=== PATIENT | female | born 1970 | race Caucasian/White ===

== ENCOUNTER 2017-10-29 11:53 | Emergency (ER) | payer BC ==
[2017-10-29] MEDS ORDERED: Lidocaine 2% EPI 1:200000 MPF* 20 ML VIAL ONE (13:33)
[2017-10-29] MEDS ORDERED: Levofloxacin 750 MG IVPREMIX(* 750 MG/150 ML BAG IVPB ONE (13:33)
[2017-10-29] MEDS ORDERED: Morphine INJ* 4 MG/ML 1 ML SYRINGE (NEW SYRINGE VERSION) IV ONE (13:34)
[2017-10-29] MEDS ORDERED: Ondansetron INJ* 2 MG/ML VIAL IV ONE (13:34)
[2017-10-29] MEDS ORDERED: Lidocaine 1.5% EPI 1:200,000* 30 ML SDV INJ ONE (13:38)
[2017-10-29] MEDS ORDERED: Lidocaine 2% EPI 1:200000 MPF* 20 ML VIAL INJ ONE (13:40)
[2017-10-29 13:50] LABS: ABS Basophils 0.1 10^3/ul (0-0.2); ABS Eosinophils 0 10^3/ul (0-0.6); ABS Lymphocytes 1.5 10^3/ul (1.0-4.8); ABS Monocytes 0.4 10^3/ul (0-0.8); ABS Neutrophils 7.4 10^3/ul (1.5-7.7); ABS Nucleated RBC 0 10^3/ul; Eosinophil % 0.1 % (0-6); Hematocrit 34 % (35-47); Hemoglobin 10.9 g/dl (12.0-16.0); Lymphocyte % 16.2 % (25-47); Mean Corpuscular HGB Conc 33 g/dl (31-36); Mean Corpuscular Hemoglobin 25 pg (27-31); Mean Corpuscular Volume 76 fL (80-97); Nucleated Red Blood Cells % 0; Platelet Count 239 10^3/ul (150-450); Red Blood Count 4.42 10^6/ul (4.0-5.4); Red Cell Distribution Width 17 % (10.5-15); White Blood Count 9.4 10^3/ul (3.5-10.8)
[2017-10-29 13:57] LABS: INR 0.94 (0.77-1.02)
--- NOTE | 2017-10-29 14:00 | RAD ---
HISTORY: Right lower medial thigh swelling and redness, rule out abscess COMPARISONS: None TECHNIQUE: Multiple transverse and longitudinal ultrasound images were obtained of the area of clinical abnormality using grayscale and color Doppler imaging. FINDINGS: In the area of clinical abnormality, there is a loculated fluid collection measuring 3.6 x 4.4 x 2.7 cm in size. There is no hypervascularity. IMPRESSION: 4.4 CM LOCULATED FLUID COLLECTION OF THE PROXIMAL RIGHT MEDIAL THIGH IN THE AREA OF CLINICAL ABNORMALITY. THE DIFFERENTIAL INCLUDES ABSCESS VERSUS HEMATOMA
[2017-10-29 14:05] LABS: EGFR Non-African American 102.2 (>60)
[2017-10-29] MEDS ORDERED: oxyCODONE/Acetamin 5/325 MG* TAB PO ONE (15:18)
[2017-10-29] MEDS ORDERED: Sulfamethox/Trimethoprim DS 800/160* TAB PO ONE (15:19)
[2017-10-29 15:42] VITALS: BP 111/62
--- NOTE | 2017-10-29 19:09 | ED ---
Daisha Fritz Elizabeth, scribed for Arthur Coats on 10/29/17 at 1418 . Skin Complaint - HPI Summary HPI Summary: The patient is a 47 year old female complaining of boil near her groin that has been present for 4 days. The patient additionally complains of fever 1 day ago. Per triage note, the patient denies any discharge. Patient has a history of diabetes and hypertension and takes medications for both. - History of Current Complaint Chief Complaint: EDRashSkinAbscess Time Seen by Provider: 10/29/17 13:21 Stated Complaint: RT THIGH PAIN Hx Obtained From: Patient Hx Last Menstrual Period: NOW Onset/Duration: Started Days Ago - has been present for 4 days Timing: Constant Current Severity: Mild Pain Intensity: 7 Pain Scale Used: 0-10 Numeric Skin Location: Leg - right inner thigh Character: Swelling Related History: Diabetes - Allergy/Home Medications Allergies/Adverse Reactions: Allergies Allergy/AdvReac Type Severity Reaction Status Date / Time amoxicillin Allergy Anaphylatic Verified 10/29/17 12:06 Shock ampicillin Allergy Anaphylatic Verified 10/29/17 12:06 Shock bee venom protein (honey bee) Allergy Anaphylatic Verified 10/29/17 12:06 Shock cephalexin [From Keflex] Allergy Hives Verified 10/29/17 12:06 clindamycin Allergy GI Upset Verified 10/29/17 12:06 Penicillins Allergy Anaphylatic Verified 10/29/17 12:06 Shock piperacillin Allergy Anaphylatic Verified 10/29/17 12:06 Shock procaine [From Novocain] Allergy Unknown Verified 10/29/17 12:06 Reaction Details PMH/Surg Hx/FS Hx/Imm Hx Endocrine/Hematology History: Reports: Hx Diabetes Cardiovascular History: Reports: Other Cardiovascular Problems/Disorders - states irregular heart beat found with seizures yrs ago Denies: Hx Congestive Heart Failure, Hx Hypertension, Hx Pacemaker/ICD Respiratory History: Denies: Other Respiratory Problems/Disorders GI History: Reports: Hx Crohn's Disease - treated last yr no problems since that time, Hx Gastroesophageal Reflux Disease - ok with daily meds History: Reports: Hx Kidney Infection - in past frequently Denies: Hx Renal Disease Sensory History: Reports: Hx Contacts or Glasses - glasses inst given Denies: Hx Hearing Aid Opthamlomology History: Reports: Hx Contacts or Glasses - glasses inst given Neurological History: Reports: Hx Headaches, Hx Migraine - r/t htn no better on htn meds, Hx Seizures - not on meds stopped seizures after first child in 1990 Psychiatric History: Denies: Hx Panic Disorder - Surgical History Surgery Procedure, Year, and Place: C SECTION . RIGHT KNEE MENISCUS X2 . TOOTH REMOVED WITH INFECTION 2014 HAD TO HAVE BONE REMOVED. GALLBLADDER 1997. TUBAL LIGATION 2003 Hx Anesthesia Reactions: No Infectious Disease History: No Infectious Disease History: Denies: Traveled Outside the [place] in Last 30 Days - Family History Known Family History: Positive: None - Social History Alcohol Use: None Substance Use Type: Reports: None Substance Use Comment - Amount & Last Used: 18 Smoking Status (MU): Heavy Every Day Tobacco Smoker Type: Cigarettes Amount Used/How Often: 1 PPD Review of Systems Negative: discharge Positive: Other - swelling to inner right thigh All Other Systems Reviewed And Are Negative: Yes Physical Exam - Summary Physical Exam Summary: Appearance: Well appearing, no pain distress Skin: warm, dry, reflects adequate perfusion Head/face: normal Eyes: EOMI, MARY ENT: normal Neck: supple, non-tender Respiratory: CTA, breath sounds present Cardiovascular: RRR, pulses symmetrical Abdomen: non-tender, soft Lower Extremities: swelling to right inner medial thigh (6 cm x 6 cm), tender with mild redness and firm consistency. Bowel: present Musculoskeletal: normal, strength/ROM intact Neuro: normal, sensory motor intact, A&Ox3 Triage Information Reviewed: Yes Vital Signs On Initial Exam: Initial Vitals Temp Pulse Resp BP Pulse Ox 98 F 109 19 128/71 98 10/29/17 12:06 10/29/17 12:06 10/29/17 12:06 10/29/17 12:06 10/29/17 12:06 Vital Signs Reviewed: Yes Procedures - Incision and Drainage Site: proximal right medial thigh Anesthesia: Local, Lidocaine Instrument(s): Needle Packing: Drain Diagnostics - Vital Signs Vital Signs Temp Pulse Resp BP Pulse Ox 10/29/17 12:06 98 F 109 19 128/71 98 - Laboratory Lab Results: Lab Results 10/29/17 10/29/17 10/29/17 Range/Units 13:40 13:40 13:40 WBC 9.4 (3.5-10.8) 10^3/ul RBC 4.42 (4.0-5.4) 10^6/ul Hgb 10.9 L (12.0-16.0) g/dl Hct 34 L (35-47) % MCV 76 L (80-97) fL MCH 25 L (27-31) pg MCHC 33 (31-36) g/dl RDW 17 H (10.5-15) % Plt Count 239 (150-450) 10^3/ul MPV 9.0 (7.4-10.4) um3 Neut % (Auto) 78.2 (38-83) % Lymph % (Auto) 16.2 L (25-47) % Dundy % (Auto) 4.5 (0-7) % Eos % (Auto) 0.1 (0-6) % Baso % (Auto) 1.0 (0-2) % Absolute Neuts (auto) 7.4 (1.5-7.7) 10^3/ul Absolute Lymphs (auto) 1.5 (1.0-4.8) 10^3/ul Absolute Monos (auto) 0.4 (0-0.8) 10^3/ul Absolute Eos (auto) 0 (0-0.6) 10^3/ul Absolute Basos (auto) 0.1 (0-0.2) 10^3/ul Absolute Nucleated RBC 0 10^3/ul Nucleated RBC % 0 INR (Anticoag Therapy) (0.77-1.02) APTT (26.0-36.3) seconds Sodium 132 L (133-145) mmol/L Potassium 3.5 (3.5-5.0) mmol/L Chloride 99 L (101-111) mmol/L Carbon Dioxide 25 (22-32) mmol/L Anion Gap 8 (2-11) mmol/L BUN 8 (6-24) mg/dL Creatinine 0.63 (0.51-0.95) mg/dL Est GFR ( Amer) 131.4 (>60) Est GFR (Non-Af Amer) 102.2 (>60) BUN/Creatinine Ratio 12.7 (8-20) Glucose 184 H (70-100) mg/dL Lactic Acid 2.0 (0.5-2.0) mmol/L Calcium 9.1 (8.6-10.3) mg/dL Total Bilirubin 0.40 (0.2-1.0) mg/dL AST 11 L (13-39) U/L ALT 11 (7-52) U/L Alkaline Phosphatase 99 (34-104) U/L Total Protein 7.0 (6.4-8.9) g/dL Albumin 3.9 (3.2-5.2) g/dL Globulin 3.1 (2-4) g/dL Albumin/Globulin Ratio 1.3 (1-3) //18 Range/Units 13:40 WBC (3.5-10.8) 10^3/ul RBC (4.0-5.4) 10^6/ul Hgb (12.0-16.0) g/dl Hct (35-47) % MCV (80-97) fL MCH (27-31) pg MCHC (31-36) g/dl RDW (10.5-15) % Plt Count (150-450) 10^3/ul MPV (7.4-10.4) um3 Neut % (Auto) (38-83) % Lymph % (Auto) (25-47) % Dundy % (Auto) (0-7) % Eos % (Auto) (0-6) % Baso % (Auto) (0-2) % Absolute Neuts (auto) (1.5-7.7) 10^3/ul Absolute Lymphs (auto) (1.0-4.8) 10^3/ul Absolute Monos (auto) (0-0.8) 10^3/ul Absolute Eos (auto) (0-0.6) 10^3/ul Absolute Basos (auto) (0-0.2) 10^3/ul Absolute Nucleated RBC 10^3/ul Nucleated RBC % INR (Anticoag Therapy) 0.94 (0.77-1.02) APTT 28.0 (26.0-36.3) seconds Sodium (133-145) mmol/L Potassium (3.5-5.0) mmol/L Chloride (101-111) mmol/L Carbon Dioxide (22-32) mmol/L Anion Gap (2-11) mmol/L BUN (6-24) mg/dL Creatinine (0.51-0.95) mg/dL Est GFR ( Amer) (>60) Est GFR (Non-Af Amer) (>60) BUN/Creatinine Ratio (8-20) Glucose (70-100) mg/dL Lactic Acid (0.5-2.0) mmol/L Calcium (8.6-10.3) mg/dL Total Bilirubin (0.2-1.0) mg/dL AST (13-39) U/L ALT (7-52) U/L Alkaline Phosphatase (34-104) U/L Total Protein (6.4-8.9) g/dL Albumin (3.2-5.2) g/dL Globulin (2-4) g/dL Albumin/Globulin Ratio (1-3) Result Diagrams: 10/29/17 13:40 10/29/17 13:40 Lab Statement: Any lab studies that have been ordered have been reviewed, and results considered in the medical decision making process. - Additional Comments Diagnostic Additional Comments: Soft Tissue Ultrasound Interpreted by radiologist. IMPRESSION: 4.4 CM LOCULATED FLUID COLLECTION OF THE PROXIMAL RIGHT MEDIAL THIGH IN THE AREA OF CLINICAL ABNORMALITY. THE DIFFERENTIAL INCLUDES ABSCESS VERSUS HEMATOMA Dr. Coats has reviewed this report. Course/Dx - Course Course Of Treatment: The patient is a 47 year old female complaining of abscess near her groin that has been present for 4 days. Bloodwork obtained. Soft tissue US reveals, per radiologist, 4.4 am loculated fluid collection of the proximal right medial thigh in the area of clinical abnormality. Dr. Coats has reviewed this report. In the ED course the patient was given Levofloxacin, Lidocaine, IV Morphine, IV Zofran, oxycodone, Bactrim. I/D of the abscess on the proximal right medial thigh. We discussed patient care with Dr. Deluna and they recommended the patient be referred to their office. Patient will be discharge and instructed to follow up with Dr. Deluna in 3 days. The patient is agreeable with this plan. - Differential Diagnoses - Skin Complaint Differential Diagnoses: Abscess, Cellulitis, Diabetes, Drug Rash - Diagnoses Provider Diagnoses: Abscess of thigh, Diabetes - Physician Notifications Discussed Care Of Patient With: Pancho Deluna Instructed by Provider To: Other - Dr. Deluna recommends that the patient be referred to their office for a follow-up Discharge - Sign-Out/Discharge Documenting (check all that apply): Discharge - discharge home - Discharge Plan Condition: Stable Disposition: HOME Prescriptions: Ibuprofen TAB* [Motrin TAB* 600 MG] 600 mg PO Q8H PRN #20 tab MDD 3 PRN Reason: Pain Oxycodone HCl/Acetaminophen [Percocet] 1 tab PO TID #10 tab MDD 3 Sulfamethox/Trimethoprim DS* [Bactrim DS 800/160 TAB*] 1 tab PO BID #20 tab Patient Education Materials: Abscess (ED) Referrals: Lula Rodriguez NP [Primary Care Provider] - Pancho Deluna MD [Medical Doctor] - Additional Instructions: Follow-up with Dr. Deluna in 3 days - Billing Disposition and Condition Condition: STABLE Disposition: HOME The documentation as recorded by the Daisha caro Elizabeth accurately reflects the service I personally performed and the decisions made by Pauly brownlee Emmanuel.
--- NOTE | 2017-11-01 09:03 | ED ---
Progress - Progress Note Progress Note: Patient's wound culture results are negative for MRSA and staph aureus however there positive for Finegoldia magna. Patient was seen for an abscess in her right groin region. This was I&D patient was started on Bactrim prior to discharge. Note indicates patient is to follow-up with general surgery in 3 days which would be today. No further action at this time. Course/Dx - Course Course Of Treatment: The patient is a 47 year old female complaining of abscess near her groin that has been present for 4 days. Bloodwork obtained. Soft tissue US reveals, per radiologist, 4.4 am loculated fluid collection of the proximal right medial thigh in the area of clinical abnormality. Dr. Coats has reviewed this report. In the ED course the patient was given Levofloxacin, Lidocaine, IV Morphine, IV Zofran, oxycodone, Bactrim. I/D of the abscess on the proximal right medial thigh. We discussed patient care with Dr. Deluna and they recommended the patient be referred to their office. Patient will be discharge and instructed to follow up with Dr. Deluna in 3 days. The patient is agreeable with this plan. - Diagnoses Provider Diagnoses: Abscess of thigh, Diabetes - Provider Notifications Instructed by Provider To: Other - Dr. Deluna recommends that the patient be referred to their office for a follow-up Discharge - Sign-Out/Discharge Documenting (check all that apply): Post-Discharge Follow Up - Discharge Plan Condition: Stable Disposition: HOME Prescriptions: Ibuprofen TAB* [Motrin TAB* 600 MG] 600 mg PO Q8H PRN #20 tab MDD 3 PRN Reason: Pain Oxycodone HCl/Acetaminophen [Percocet] 1 tab PO TID #10 tab MDD 3 Sulfamethox/Trimethoprim DS* [Bactrim DS 800/160 TAB*] 1 tab PO BID #20 tab Patient Education Materials: Abscess (ED) Referrals: Lula Rodriguez NP [Primary Care Provider] - Pancho Deluna MD [Medical Doctor] - Additional Instructions: Follow-up with Dr. Deluna in 3 days - Billing Disposition and Condition Condition: STABLE Disposition: HOME
== END 2017-10-29 15:40 | disposition home or self-care (01) ==
LOC: ED 11:53
DX: L02.415 Cutaneous abscess of right lower limb (principal); B96.89 Other specified bacterial agents as the cause of diseases classified elsewhere; E11.9 Type 2 diabetes mellitus without complications; Z79.84 Long term (current) use of oral hypoglycemic drugs; I49.9 Cardiac arrhythmia, unspecified; Z88.0 Allergy status to penicillin; Z88.4 Allergy status to anesthetic agent; Z88.1 Allergy status to other antibiotic agents; Z91.030 Bee allergy status; F17.210 Nicotine dependence, cigarettes, uncomplicated
CPT/HCPCS: 10060; 36415; 80053; 83605; 85025; 85610; 85730; 87040; 87070; 87076; 87205; 87640; 87641; 96365; 96375; 99283; A9270-GY; J2270; J2405

== ENCOUNTER 2018-08-25 17:45 | Emergency (ER) | payer BC, OTHER ==
[2018-08-25 18:18] VITALS: BP 124/80
--- NOTE | 2018-08-25 18:27 | UC ---
Knee Pain HPI - HPI Summary HPI Summary: 48 y/o female presents to the urgent care c/o RT knee pain s/p falling on the concrete floor this morning around 1000AM at work. Pt reports Hx of Meniscus tear surgery 2X w/ Dr kincaid and 2011. Pt has been limping due to pain. Pain is sharp 8/10 walking. Pt took Ibuprofen 600mg PO around 1030AM to alleviate symptoms. Pt denies numbness or tingling sensation over the knee, calf pain, SOB, chest pain, abdominal pain,N/V/D. - History of Current Complaint Chief Complaint: UCLowerExtremity Stated Complaint: KNEE INJURY Time Seen by Provider: 08/25/18 18:26 Hx Obtained From: Patient Hx Last Menstrual Period: 07/17/18 ?: No - B/L tubal ligation Onset/Duration: Sudden Onset Severity Initially: Mild Severity Currently: Mild Pain Intensity: 8 Pain Scale Used: 0-10 Numeric Character: Sharp - w/ movment and walking Aggravating Factor(s): Movement Alleviating Factor(s): Rest, OTC Meds - ibuprofen 800mg PO at 1030am Associated Signs And Symptoms: Positive: Swelling - mild, Bruising - over patella. Negative: Redness, Fever, Weakness, Numbness, Tingling Able to Bear Weight: Yes - Risk Factors Septic Arthritis Risk Factor: Negative Gout Risk Factor: Negative - Allergies/Home Medications Allergies/Adverse Reactions: Allergies Allergy/AdvReac Type Severity Reaction Status Date / Time amoxicillin Allergy Anaphylatic Verified 08/25/18 18:18 Shock ampicillin Allergy Anaphylatic Verified 08/25/18 18:18 Shock bee venom protein (honey bee) Allergy Anaphylatic Verified 08/25/18 18:18 Shock cephalexin [From Keflex] Allergy Hives Verified 08/25/18 18:18 clindamycin Allergy GI Upset Verified 08/25/18 18:18 Penicillins Allergy Anaphylatic Verified 08/25/18 18:18 Shock piperacillin Allergy Anaphylatic Verified 08/25/18 18:18 Shock procaine [From Novocain] Allergy Unknown Verified 08/25/18 18:18 Reaction Details Home Medications: Home Medications Gabapentin CAP(*) [Neurontin 100 mg CAP(*)] 100 mg PO TID 08/25/18 [History Confirmed 08/25/18] Ibuprofen TAB* [Advil TAB*] 800 mg PO ONCE PRN 08/25/18 [History Confirmed 08/25] Pregabalin CAP(*) [Lyrica CAP(*)] 100 mg PO TID 08/25/18 [History Confirmed ] PMH/Surg Hx/FS Hx/Imm Hx Previously Healthy: Yes Endocrine History: Diabetes - Surgical History Surgical History: Yes Surgery Procedure, Year, and Place: C SECTION . RIGHT KNEE MENISCUS X2 . TOOTH REMOVED WITH INFECTION 2014 HAD TO HAVE BONE REMOVED. GALLBLADDER 1997. SURGERY. TUBAL LIGATION 2003 - Family History Known Family History: Positive: Diabetes - Social History Occupation: Employed Full-time Lives: With Family Alcohol Use: None Substance Use Type: None Substance Use Comment - Amount & Last Used: 18 Smoking Status (MU): Former Smoker Type: Cigarettes Amount Used/How Often: 1 PPD Review of Systems All Other Systems Reviewed And Are Negative: Yes Constitutional: Positive: Negative Skin: Positive: Other - mild swelling over the patella Eyes: Positive: Negative ENT: Positive: Negative Respiratory: Positive: Negative Cardiovascular: Positive: Negative Gastrointestinal: Positive: Negative Genitourinary: Positive: Negative Motor: Positive: Negative Neurovascular: Positive: Negative Musculoskeletal: Positive: Decreased ROM - RT knee, Other: - Rt knee pain s/p fall Neurological: Positive: Negative Psychological: Positive: Negative Is Patient Immunocompromised?: No Physical Exam - Summary Physical Exam Summary: Vital Signs Reviewed: Yes General: well developed, well nourished obese female sitting in the examining table w/o any apparent distress Eyes: Positive: Conjunctiva Clear - PERRLA, EOMI, fundi grossly normal ENT: Positive: Normal ENT inspection, Hearing grossly normal, Pharynx normal, TMs normal Neck: Positive: Supple, Nontender, No Lymphadenopathy Respiratory: Positive: Chest nontender, Lungs clear, Normal breath sounds, No respiratory distress Cardiovascular: Positive: RRR, No Murmur, Pulses Normal, Brisk Capillary Refill Abdomen Description: Positive: Nontender, No Organomegaly, Soft. Negative: CVA Tenderness (R), CVA Tenderness (L) Bowel Sounds: Positive: Present Musculoskeletal: Positive: Strength Intact, No Edema, Rt Knee: Pt is able to bear weight and ambulate with limping. No surface trauma, mild soft tissue swelling below patella, no obvious effusion. No overlying erythema or warmth. The R knee is without obvious asymmetry or deformity when compared with the L knee. Decreased ROM of RT knee due to pain. Positive tenderness to palpation of the patella, no effusion or ballottement. PT tenderness over the infrapatellar tendon. Point tenderness over the medial joint line, No tenderness over the medial or lateral tibial plateaus. No tenderness over the proximal fibular head , No tenderness, fullness or mass of the popliteal fossa. No quadriceps tenderness. No laxity of the ACL. PCL, MCL, or LCL. no collateral ligament laxity to valgus or varus stress. Negative Angelique/Drawer sign. Negative Maryse. Distal motor and neurovascular status intact. Neurological Exam: Normal Psychological Exam: Normal Skin Exam: Normal Triage Information Reviewed: Yes Vital Signs: Initial Vital Signs Temp 98.2 F 08/25/18 18:12 Pulse 110 08/25/18 18:12 Resp 18 08/25/18 18:12 BP 124/80 08/25/18 18:12 Pulse Ox 100 08/25/18 18:12 Knee Pain Course/Dx - Course Course Of Treatment: 48 y/o female presents to the urgent care c/o RT knee pain s/p falling on the concrete floor this morning around 1000AM at work. Pt reports Hx of Meniscus tear surgery 2X w/ Dr kincaid and 2011. Pt has been limping due to pain. Pain is sharp 8/10 walking. Pt took Ibuprofen 600mg PO around 1030AM to alleviate symptoms. Pt denies numbness or tingling sensation over the knee, calf pain, SOB, chest pain, abdominal pain,N/V/D. Hx obtained. Pt w/ Hx of meniscus tear repair 2X in 2007 and 2011 w/ Dr Hardy. Rt knee X- ray ordered, Impression: Soft tissue swelling, no acute fracture observed. Dr Sargent consulted on X-ray and he doesn't see any abnormality. Final reading still pending. Pt will be notified tomorrow of final reading. Pt most likely with a RT knee Sprain. Pt knee immobilized with ROMAIN bandage and knee immobilizer. Pt Rx [place] PO to alleviate symptoms. Pt advised RICE, take medication for pain and to f/u with her Orthopedic DR Hardy in 2- days for further treatment. Pt understood and agreed and left the clinic ambulating. - Differential Dx/Diagnosis Differential Diagnosis/HQI/PQRI: Contusion, Dislocation, Fracture (Closed), Sprain, Strain, Tendonitis Provider Diagnosis: Pain of right knee after injury, Right knee sprain Discharge - Sign-Out/Discharge Documenting (check all that apply): Patient Departure - D/c home All imaging exams completed and their final reports reviewed: No - Discharge Plan Condition: Stable Disposition: HOME Prescriptions: HYDROcodone/ACETAMIN 5-325 MG* [Rockwood 5-325 TAB*] 1 tab PO Q6H PRN #12 tab MDD 1g/4h-4g/day PRN Reason: Pain Patient Education Materials: Knee Sprain (ED) Referrals: Mychal Hardy MD [Medical Doctor] - 3 Days Lula Rodriguez NP [Primary Care Provider] - 3 Days Additional Instructions: 1-Please take medications as directed to alleviate pain and swelling. 2-Please apply ice, keep your knee immobilized with the Knee inmobilizer. Avoid any strenuous exercise or standing for long periods of time. Elevate your leg at night time 3- Please f/u with your Orthopedic Dr Hardy in 3 days for further evaluation and treatment. - Billing Disposition and Condition Condition: STABLE Disposition: Home
== END 2018-08-25 19:40 | disposition home or self-care (01) ==
LOC: UCEAST 17:45
DX: M76.9 Unspecified enthesopathy, lower limb, excluding foot (principal); Z88.0 Allergy status to penicillin; Z88.1 Allergy status to other antibiotic agents; Z88.4 Allergy status to anesthetic agent; E11.9 Type 2 diabetes mellitus without complications; Z87.891 Personal history of nicotine dependence; W19.XXXA Unspecified fall, initial encounter; Y92.89 Other specified places as the place of occurrence of the external cause; Y99.0 Civilian activity done for income or pay
CPT/HCPCS: 99213; G0463

== ENCOUNTER 2019-05-30 17:41 | Emergency (ER) | payer BC, OTHER ==
--- OUTSIDE RECORDS SUMMARY | 2019-05-30 17:48 | XMS REPORT | Summary of Care ---
:1970 Author Organization [facility] Address [address] [address] Care Team Providers Name Role Phone Colt Starks MD Primary Care Provider Reason for Referral Refer to Department Only (Routine) Status Reason Specialty Diagnoses / Referred By Referred To Procedures Contact Contact Pending Review Gastroenterology Diagnoses History of colon polyps Other iron deficiency anemia Bhargav Rodriguez FNP Gastroenterolog [address] y/Hepatology [address] [address] Road Phone: [place], [place] [phone] Fax: Scheduling Instructions Is the patient on cpap machine?No Is the patient on oxygen?No BP 117/75 (BP Location: Left arm, Patient Position: Sitting) | Pulse (!) 120 | Ht 5' 11" (1.803 m) | Wt 254 lb (115.2 kg) | SpO2 98% | BMI 35.43 kg/m BMI Readings from Last 4 Encounters: 04/26/19 : 35.43 kg/m 04/03/19 : 37.38 kg/m 03/27/19 : 37.38 kg/m 03/13/19 : 36.96 kg/m Controlled Substance Medications: Anticoagulant Medications: Psychiatric/Antianxiety Medications: Antiretroviral Medications: Reason for Visit Reason Comments Follow Up diabetes and anemia Encounter Details Date Type Department Care Team Description 04/26/2019 Office Visit Lula Miguel Diabetes mellitus without complication (HCC) (Primary Dx); Practice [employer] Mixed hyperlipidemia; [address] Essential hypertension; [place] [address] [place] [address] History of colon polyps; [phone] Other iron deficiency anemia Allergies Active Allergy Reactions Severity Noted Date Comments Ampicillin Anaphylaxis 08/27/2015 Bee Anaphylaxis High 07/19/2011 Clindamycin Anaphylaxis 07/19/2017 Keflex Anaphylaxis High 07/19/2011 Penicillin G Anaphylaxis, Hives High 07/19/2011 documented as of this encounter (statuses as of 04/26/2019) Medications Medication Sig Dispensed Refills Start Date End Date Status Naproxen Sodium Take by 0 Active (ALEVE) 220 MG Oral mouth. Tab loratadine Take 10 mg by 0 Active (CLARITIN,ALAVERT) mouth DAILY. 10 MG Oral Tab pregabalin (LYRICA) Take 1 Cap by 90 Cap 5 03/27/2019 Active 100 MG Oral Cap mouth THREE TIMES DAILY. Max Daily Amount: 300 mg. atorvastatin Take 1 Tab by 90 Tab 5 03/27/2019 Active (LIPITOR) 20 MG mouth DAILY. Oral TabIndications: Mixed hyperlipidemia Omeprazole delayed Take 20 mg by 90 Cap 5 03/27/2019 Active rel cap 20 MG Oral mouth DAILY. CAPSULE DELAYED RELEASE Diclofenac Sodium Place 1 Dose 1 Bottle 3 03/27/2019 Active 1.5 % Transdermal onto skin FOUR Solution TIMES DAILY NEEDED (knee or foot pain). LISINOPRIL-HCTZ Take 1 Tab by 90 Tab 3 03/27/2019 Active 20-25 MG Oral mouth DAILY. TabIndications: Essential hypertension Glucose Blood In 1 Strip by In 100 Strip 5 04/10/2019 Active Vitro Strip Vitro route DAILY. Freestyle Lite, Dx 250.02, tests daily sitagliptin Take 1 Tab by 60 Tab 5 04/26/2019 Active (JANUVIA) 100 MG mouth DAILY. Oral Tab metFORMIN HCL 1000 Take 1 Tab by 120 Tab 5 04/26/2019 Active MG Oral mouth TWICE TabIndications: DAILY. 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 Acute pain of right knee 03/11/2015 odontogenic abscess(right lower jaw) 08/06/2014 Essential hypertension, benign 08/19/2011 Mixed hyperlipidemia 08/19/2011 Tobacco abuse 07/19/2011 BMI 40.0-44.9, adult 07/19/2011 documented as of this encounter (statuses as of 04/26/2019) Resolved Problems Problem Noted Date Resolved Date Pelvic pain in female 08/19/2011 01/08/2016 documented as of this encounter (statuses as of 04/26/2019) Immunizations Name Administration Dates Next Due Influenza (IM) Preservative Free 06/16/2015 Influenza Vaccine Split 08/07/2014 PNEUMOCOCCAL POLYSACCHARIDE VACCINE 08/07/2014 documented as of this encounter Social History Tobacco Use Types Packs/Day Years Used Date Former Smoker Cigarettes 0.5 Quit: 02/07/2018 Smokeless Tobacco: Never Used Alcohol Use Drinks/Week oz/Week Comments No 0 Standard drinks or equivalent 0.0 Sex Assigned at Date Recorded Not on file Job Start Date Occupation Industry Not on file Not on file Not on file Travel History Travel Start Travel End No recent travel history available. documented as of this encounter Last Filed Vital Signs Vital Sign Reading Time Taken Comments Blood Pressure 117/75 04/26/2019 8:41 AM EDT Pulse 120 04/26/2019 8:41 AM EDT Temperature - - Respiratory Rate - - Oxygen Saturation 98% 04/26/2019 8:41 AM EDT Inhaled Oxygen Concentration - - Weight 115.2 kg (254 lb) 04/26/2019 8:41 AM EDT Height 180.3 cm (5' 11") 04/26/2019 8:41 AM EDT Body Mass Index 35.43 04/26/2019 8:41 AM EDT documented in this encounter Patient Instructions Patient InstructionsLula Rodriguez FNP - 04/26/2019 8:40 AM EDTSchedule fasting lab work for 3 months, then office visit. You had flu vaccine. Schedule colonoscopy and EGD same day. Begin januvia daily. Continue metformin Work on diet and weight loss documented in this encounter Progress Notes Lula Rodriguez FNP - 04/26/2019 8:40 AM EDT PATIENT: Vanessa Chu : 1970 DATE OF SERVICE: 04/26/2019 Chief Complaint Patient presents with Follow Up diabetes and anemia SUBJECTIVE: Vanessa Chu is a 48-y.o. female who is here for follow up of diabetes, hypertension anddyslipidemia. Also recent labs showing microcystic anemia. No heavy menses. She has noted some darkstools. No BRB. She did not bring fingerstick readings. She is taking metformin bid. Patient denies foot pain or swelling, foot lesions, numbness, burning, injuries or infections. The patient is taking hypertensive medications compliantly without side effects. Denies chest pain,dyspnea, edema, or TIA's. No dizziness or palpitations. She has been taking her statin cholesterol medication regularly without side effects such as myalgias or upper abdominal pain, nausea or jaundice. Patient Active Problem List Diagnosis Date Noted Old complete tear of anterior cruciate ligament of right knee 04/03/2019 Diabetes mellitus type 2, without complication 03/27/2019 Old complete ACL tear 12/12/2018 Primary osteoarthritis of right knee 10/06/2018 Old complete ACL tear, right 10/06/2018 Myoma 07/17/2018 Added automatically from request for surgery [id number] Achilles tendinitis of both lower extremities 09/06/2016 Bilateral ankle pain 01/08/2016 Osteonecrosis (HCC) 08/19/2015 Right posterior mandible. Acute pain of right knee 03/11/2015 odontogenic abscess(right lower jaw) 08/06/2014 Essential hypertension, benign 08/19/2011 Mixed hyperlipidemia 08/19/2011 Tobacco abuse 07/19/2011 BMI 40.0-44.9, adult (HCC) 07/19/2011 Current Outpatient Medications Medication Sig atorvastatin (LIPITOR) 20 MG Oral Tab Take 1 Tab by mouth DAILY. Diclofenac Sodium 1.5 % Transdermal Solution Place 1 Dose onto skin FOUR TIMES DAILY NEEDED (knee or foot pain). Glucose Blood In Vitro Strip 1 Strip by In Vitro route DAILY. Freestyle Lite, Dx 250.02, tests daily LISINOPRIL-HCTZ 20-25 MG Oral Tab Take 1 Tab by mouth DAILY. loratadine (CLARITIN,ALAVERT) 10 MG Oral Tab Take 10 mg by mouth DAILY. metFORMIN HCL 1000 MG Oral Tab Take 1 Tab by mouth TWICE DAILY. Naproxen Sodium (ALEVE) 220 MG Oral Tab Take by mouth. Omeprazole delayed rel cap 20 MG Oral CAPSULE DELAYED RELEASE Take 20 mg by mouth DAILY. pregabalin (LYRICA) 100 MG Oral Cap Take 1 Cap by mouth THREE TIMES DAILY. Max Daily Amount: 300 mg. sitagliptin (JANUVIA) 100 MG Oral Tab Take 1 Tab by mouth DAILY. No current facility-administered medications for this visit. OBJECTIVE: BP 117/75 (BP Location: Left arm, Patient Position: Sitting) | Pulse (!) 120 | Ht 5' 11" (1.803 m) | Wt 254 lb (115.2 kg) | SpO2 98% | BMI 35.43 kg/m She is alert and in no distress. The neck is supple and free of adenopathy or masses, the thyroid isnormal without enlargement or nodules. Chest is clear, no wheezing or rales. Normal symmetric air entry throughout both lung ellison. Heart RRR and no murmur. Foot exam - both sides normal; no swelling, tenderness or skin or vascular lesions. Color and temperature is normal. Sensation is intact. Peripheral pulses are palpable. Toenails are normal. BP Readings from Last 3 Encounters: 04/26/19 117/75 04/03/19 102/69 03/27/19 134/78 Wt Readings from Last 3 Encounters: 04/26/19 254 lb (115.2 kg) 04/03/19 268 lb (121.6 kg) 03/27/19 268 lb (121.6 kg) Lab Results Component Value Date GLYCO 8.5 (H) 03/27/2019 GLYCO 6.9 (H) 10/25/2016 GLYCO 6.9 (H) 08/20/2015 Lab Results Component Value Date CHOL 161 03/27/2019 TRIG 332 (H) 03/27/2019 HDL 27 (L) 03/27/2019 LDL 68 03/27/2019 LDLHDLRATIO 2.5 03/27/2019 CHOLHDLRATIO 6.0 03/27/2019 Lab Results Component Value Date NA 135 03/27/2019 K 3.8 03/27/2019 CL 100 03/27/2019 CO2 23 03/27/2019 GLUCOSE 199 (H) 03/27/2019 BUN 8 03/27/2019 CREATININE 0.5 (L) 03/27/2019 CALCIUM 9.1 03/27/2019 TP 7.0 03/27/2019 ALBUMIN 4.0 03/27/2019 AST 41 03/27/2019 ALT 25 03/27/2019 ALK 102 03/27/2019 TBILI 0.3 03/27/2019 EGFR >60 03/27/2019 Lab Results Component Value Date WBC 7.39 03/27/2019 HGB 9.7 (L) 03/27/2019 HCT 35.0 03/27/2019 PLAT 249 03/27/2019 ASSESSMENT: ICD-9-CM ICD-10-CM 1. Diabetes mellitus without complication (HCC), poor control 250.00 E11.9 GLYCOHEMOGLOBIN A1C metFORMIN HCL 1000 MG Oral Tab 2. Mixed hyperlipidemia, on statin 272.2 E78.2 LIPID PROFILE 3. Essential hypertension, well controlled 401.9 I10 COMPREHENSIVE METABOLIC PANEL 4. History of colon polyps V12.72 Z86.010 REFER TO GI 5. Other iron deficiency anemia 280.8 D50.8 REFER TO GI Patient Instructions Schedule fasting lab work for 3 months, then office visit. You had flu vaccine. Schedule colonoscopy and EGD same day. Begin januvia daily. Continue metformin Work on diet and weight loss Author: STACY Love 04/26/2019 09:17 documented in this encounter Plan of Treatment Date Type Specialty Care Team Description 06/30/2019 Lab Internal Medicine 2019 Office Visit Family Practice Lula Rodriguez FNP [address] [place] [address] [phone] Name Type Priority Associated Diagnoses Order Schedule GLYCOHEMOGLOBIN A1C Lab Routine Diabetes mellitus without Expected: complication (HCC) 04/26/2019 (Approximate), Expires: 10/23/2019 COMPREHENSIVE METABOLIC Lab Routine Essential hypertension Expected: PANEL 04/26/2019 (Approximate), Expires: 10/23/2019 LIPID PROFILE Lab Routine Mixed hyperlipidemia Expected: 04/26/2019 (Approximate), Expires: 10/23/2019 Name Type Priority Associated Diagnoses Order Schedule REFER TO GI Referral Routine History of colon polyps Ordered: 04/26/2019 Other iron deficiency anemia Health Maintenance Due Date Last Done Comments Diabetic Eye Exam 1970 FOOT EXAM 1990 MAMMOGRAM (SCREENING) 2012 COLONOSCOPY SCREENING 01/18/2018 01/18/2013 PAP SMEAR 09/25/2018 09/25/2015, 09/25/2015, 07/19/2011 INFLUENZA VACCINE (#1) 2019 06/16/2015, 08/07/2014 HEMOGLOBIN A1C 06/27/2019 03/27/2019, 10/25/2016, 08/20/2015, Additional history exists DEPRESSION SCREENING 03/27/2020 03/27/2019 LIPID DISORDER SCREENING 03/27/2020 03/27/2019, 03/27/2019, 10/25/2016, Additional history exists PNEUMOCOCCAL 0-64 YRS Completed 08/07/2014 HPV IMMUNIZATION SERIES Aged Out No longer eligible based on patient's age to complete this topic MENINGOCOCCAL VACCINE IMM Aged Out No longer eligible based on patient's age to complete this topic documented as of this encounter Goals Goal Patient Goal Associated Recent Patient-Stated? Author Type Problems Progress Blood Pressure Blood Pressure 117/75 No Michael, < 140/90 (04/26/2019 STACY Cotton 8:41 AM EDT) Note: This is an individualized treatment (blood pressure) goal for Vanessa Chu: Displayed above (on the left) is your goal for blood pressure control. Your most recent blood pressure is also shown above, on the right. You should try to achieve blood pressures that are lower than your goal listed above (on the left). Glycohemoglobin A1c < 7.0 Diabetes 8.5 (03/27/2019 8:03 No Lula Rodriguez FNP AM EDT) Note: This is an individualized treatment (diabetes control, HgbA1C) goal for Vanessa Chu: Displayed above is your progress towards your HgbA1C goal. Your goal is shown above (on the left); your most recent HgbA1C is shown on the right. Note that lower numbers are better. Weight loss vs. 18 mo Lifestyle 14 (04/26/2019 8:41 AM No Lula Rodriguez FNP max (lbs) >= 10 EDT) Note: This is an individualized lifestyle goal for Vanessa Chu: Your body mass index (BMI) is more than 30. You should lose weight. A reasonable starting goal is to lose 10 pounds. Displayed above is how many pounds you have lost thus far towards your 10 pound weight loss goal. Keep immunizations current Lifestyle No Lula Rodriguez FNP Note: This is an individualized lifestyle goal for Vanessa Chu: Please be sure to keep up-to-date on recommended immunizations. For example, this would include a yearly influenza vaccine. Immunization status can be seen by looking at the Health Maintenance sections of your [facility], Plan of Care, and any After Visit Summaries. Take all prescribed medications as Self-management No Lula Rodriguez FNP directed Note: This is an individualized self-management goal for Vanessa Chu: Please take all prescribed medications as directed. 1. Do not skip doses. If you cannot afford your medications, talk with your doctor. 2. Use a pill reminder system such as a pill box if needed. Your pharmacist can help you with this. 3. Contact your Pharmacy 5 days before your medication runs out. If you cannot take your medications for any reasons, talk with your doctor. 4. Please bring all of your medication bottles and inhalers (or a list of all your medications/inhalers) with you to every visit. Potential barriers to meeting all of your care plan goals will continue to be addressed on an ongoing basis. documented as of this encounter Results Not on filedocumented in this encounter Visit Diagnoses Diagnosis Diabetes mellitus without complication (HCC) - Primary Type II or unspecified type diabetes mellitus without mention of complication, not stated as uncontrolled Mixed hyperlipidemia Essential hypertension Unspecified essential hypertension History of colon polyps Personal history of colonic polyps Other iron deficiency anemia documented in this encounter Insurance Payer Benefit Plan / Subscriber ID Effective Dates Phone Address Type Group MAYURI LEONBS xxxxxxxxxxxx 2014-Present [employer] Guarant[employer] Name Account Type Relation to Date of Phone Billing Patient Address Vanessa Chu Personal/Family 1970 [id number] [place], ([place]) [place] [address] documented as of this encounter
--- OUTSIDE RECORDS SUMMARY | 2019-05-30 17:48 | XMS REPORT | Summary of Care ---
:1970 Author Organization [facility] Address [address] [address] Care Team Providers Name Role Phone Colt Starks MD Primary Care Provider Reason for Visit Reason Comments Pre-Op Exam Pre-op Right Knee ACL/AUTO EUA 04-25-19 Encounter Details Date Type Department Care Team Description 04/03/2019 Office Visit [facility] - Edith Holden, Silvina complete tear of [place] RPA-C anterior cruciate [address] ligament of right [address] knee (Primary Dx) [place] [address] [place] [address] [phone] Allergies Active Allergy Reactions Severity Noted Date Comments Ampicillin Anaphylaxis 08/27/2015 Bee Anaphylaxis High 07/19/2011 Clindamycin Anaphylaxis 07/19/2017 Keflex Anaphylaxis High 07/19/2011 Penicillin G Anaphylaxis, Hives High 07/19/2011 documented as of this encounter (statuses as of 04/03/2019) Medications Medication Sig Dispensed Refills Start Date End Date Status Glucose Blood In Vitro 1 Strip by In 100 Strip 5 05/16/2015 Active Strip Vitro route DAILY. Freestyle Lite, Dx 250.02, tests daily Naproxen Sodium (ALEVE) Take by mouth. 0 Active 220 MG Oral Tab loratadine Take 10 mg by 0 Active (CLARITIN,ALAVERT) 10 mouth DAILY. MG Oral Tab metFORMIN HCL 1000 MG TAKE ONE TABLET 120 Tab 5 11/10/2018 Active Oral TabIndications: BY MOUTH TWICE A Diabetes mellitus DAY WITH MEALS without complication (HCC) pregabalin (LYRICA) 100 Take 1 Cap by 90 Cap 5 03/27/2019 Active MG Oral Cap mouth THREE TIMES DAILY. Max Daily Amount: 300 mg. atorvastatin (LIPITOR) Take 1 Tab by 90 Tab 5 03/27/2019 Active 20 MG Oral mouth DAILY. TabIndications: Mixed hyperlipidemia Omeprazole delayed rel Take 20 mg by 90 Cap 5 03/27/2019 Active cap 20 MG Oral CAPSULE mouth DAILY. DELAYED RELEASE Diclofenac Sodium 1.5 % Place 1 Dose onto 1 Bottle 3 03/27/2019 Active Transdermal Solution skin FOUR TIMES DAILY NEEDED (knee or foot pain). LISINOPRIL-HCTZ 20-25 Take 1 Tab by 90 Tab 3 03/27/2019 Active MG Oral TabIndications: mouth DAILY. Essential hypertension documented as of this encounter (statuses as of 04/03/2019) Active Problems Problem Noted Date Old complete tear of anterior cruciate ligament of right knee 04/03/2019 Diabetes mellitus type 2, without complication 03/27/2019 Old complete ACL tear 12/12/2018 Primary osteoarthritis of right knee 10/06/2018 Old complete ACL tear, right 10/06/2018 Myoma 07/17/2018 Overview: Added automatically from request for surgery [id number] Achilles tendinitis of both lower extremities 09/06/2016 Bilateral ankle pain 01/08/2016 Osteonecrosis 08/19/2015 Overview: Right posterior mandible. Acute pain of right knee 03/11/2015 odontogenic abscess(right lower jaw) 08/06/2014 Essential hypertension, benign 08/19/2011 Mixed hyperlipidemia 08/19/2011 Tobacco abuse 07/19/2011 BMI 40.0-44.9, adult 07/19/2011 documented as of this encounter (statuses as of 04/03/2019) Resolved Problems Problem Noted Date Resolved Date Pelvic pain in female 08/19/2011 01/08/2016 documented as of this encounter (statuses as of 04/03/2019) Immunizations Name Administration Dates Next Due Influenza [...] Sign Reading Time Taken Comments Blood Pressure 102/69 04/03/2019 3:16 PM EDT Pulse 116 04/03/2019 3:16 PM EDT Temperature - - Respiratory Rate - - Oxygen Saturation - - Inhaled Oxygen Concentration - - Weight 121.6 kg (268 lb) 04/03/2019 3:16 PM EDT Height 180.3 cm (5' 11") 04/03/2019 3:16 PM EDT Body Mass Index 37.38 04/03/2019 3:16 PM EDT documented in this encounter Progress Notes Edith Holden RPA-C - 04/03/2019 3:15 PM EDT Name: Vanessa Chu . 1970 Date of Service: 04/03/2019 Chief Complaint Patient presents with Pre-Op Exam Pre-op Right Knee ACL/AUTO EUA 04-25-19 Subjective: Vanessa Chu is a 48-y.o. female is here for pre-op evaluation for right knee anterior cruciate ligament reconstruction using BTB allograft . Surgery is scheduled with Dr. Hardy on 04/25/19. Has a chronic anterior cruciate ligament tear. Has failed physical therapy. States just found out anemic anddiabetes is not under control. HGB A 1 C 8.5. 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 GERD (gastroesophageal reflux disease) Hypertension Lipidoses Osteoarthritis Ovarian cyst Unspecified essential hypertension Past Surgical History: Procedure Laterality Date ARTHROSCOPY KNEE right knee SECTION NEC twice CHOLECYSTECTOMY LAPAROSCOPIC TUBAL LIGATION MD FEMUR/KNEE SURG UNLISTED Right MD HYSTEROSCOPY,W/ENDO BX N/A 08/11/2018 Procedure: HYSTEROSCOPY, DILATATION AND CURETTAGE, Excision of Cervical Polyp ; Surgeon: Elias Crespo MD; Location: [facility] MAIN OR MD REMOVAL GALLBLADDER Allergies Allergen Reactions Bee Anaphylaxis Keflex Anaphylaxis Penicillin G Anaphylaxis and Hives Ampicillin Anaphylaxis Clindamycin Anaphylaxis Current Outpatient Medications Medication Sig atorvastatin (LIPITOR) [...] DAILY. metFORMIN HCL 1000 MG Oral Tab TAKE ONE TABLET BY MOUTH TWICE A DAY WITH MEALS Naproxen Sodium (ALEVE) 220 MG Oral Tab Take by mouth. Omeprazole delayed rel cap 20 MG Oral CAPSULE DELAYED RELEASE Take 20 mg by mouth DAILY. pregabalin (LYRICA) 100 MG Oral Cap Take 1 Cap by mouth THREE TIMES DAILY. Max Daily Amount: 300 mg. No current facility-administered medications for this visit. Physical Exam: Wearing knee brace . No swelling note. Nv intact to the right lower extremity. ICD-9-CM ICD-10-CM 1. Old complete tear of anterior cruciate ligament of right knee 717.83 M23.51 Plan: Vanessa Chu is scheduled for a right knee anterior cruciate ligament reconstruction using BTB allograft with Dr. Hardy . Will cx surgery. Need HGB A 1 C to be 7 or lower prior to surgery. Work with limit of no stair climbing. Will call when gets DM under control to reschedule. Author: AURELIO Brothers 04/03/2019 15:17 documented in this encounter Plan of Treatment Date Type Specialty Care Team Description 04/25/2019 Hospital Encounter Mychal Hardy MD Short Procedure [address] [place] [place] [address] [phone] 04/25/2019 Surgery Mychal Hardy MD ARTHROSCOPY KNEE [address] [facility] [address] [facility] WITH ANTERIOR [address] [place] [address] REPAIR WITH BTB BANDAR [phone] 10MM SHAPED BONE 04/26/2019 Office Visit [facility] Lula Rodriguez, LOCATION AND MEASUREMENT TECHNICIAN [address] [place] [address] [phone] Health Maintenance Due Date Last Done Comments [...] Type Problems Progress Blood Pressure Blood Pressure 102/69 Suzanne Rodriguez, < 140/90 (04/03/2019 STACY Cotton 3:16 PM EDT) Note: This is an individualized treatment (blood pressure) goal for Vanessa Chu: Displayed above (on the left) is your goal for blood pressure control. Your most recent blood pressure is also shown above, on the right. You should try to achieve blood pressures that are lower than your goal listed above (on the left). Glycohemoglobin A1c < 7.0 Diabetes 8.5 (03/27/2019 8:03 Lula Muñoz FNP AM EDT) Note: This is an individualized treatment (diabetes control, HgbA1C) goal for Vanessa Chu: Displayed above is your progress towards your HgbA1C goal. Your goal is shown above (on the left); your most recent HgbA1C is shown on the right. Note that lower numbers are better. Weight loss vs. 18 mo Lifestyle 0 (04/03/2019 3:16 PM Lula Muñoz FNP max (lbs) >= 10 EDT) Note: [...] filedocumented in this encounter Visit Diagnoses Diagnosis Old complete tear of anterior cruciate ligament of right knee - Primary documented in this encounter Insurance Payer Benefit Plan Subscriber ID Effective Dates Phone Address Type / Group [employer] xxxxxxx 2018-Prese Workers Comp INSURANCE [facility] documented as of this encounter
[2019-05-30 18:07] VITALS: BP 130/81
--- NOTE | 2019-05-30 19:20 | UC ---
Back Pain HPI - HPI Summary HPI Summary: 48 year old female comes in with a chief complaint of low back pain. This started 3 days ago while she was walking. Pains low mid back pain radiates down into the right buttock. Pain is worse with twisting turning bending. No fevers no chills. Patient's had similar back pain in the past. Patient has chronic right knee problems and she's had recurrent low back pain intermittently in her right knee is bothering her more. She's been using a TENS unit back and it does decrease the pain. Ibuprofen does not help. Ever since she's had a problem with a right knee she's had difficulty with weakness of the right leg. This is at least as early as August 2018. The right knee is in a brace and she says she is having difficulty getting to the bathroom in time for urine. She'll feel like she has to urinate and then because of decreased mobility sometimes she will not make it to the bathroom. No burning with urination no fevers no chills. She also reports that she's been having diarrhea and anemia and she is scheduled for colonoscopy. She reports the diarrhea is been for several months. - History of Current Complaint Chief Complaint: UCBackPain Stated Complaint: BACK INJ Time Seen by Provider: 05/30/19 18:23 Hx Last Menstrual Period: 07/17/18 Pain Intensity: 6 - Allergies/Home Medications Allergies/Adverse Reactions: Allergies Allergy/AdvReac Type Severity Reaction Status Date / Time amoxicillin Allergy Anaphylatic Verified 05/30/19 18:07 Shock ampicillin Allergy Anaphylatic Verified 05/30/19 18:07 Shock bee venom protein (honey bee) Allergy Anaphylatic Verified 05/30/19 18:07 Shock cephalexin [From Keflex] Allergy Hives Verified 05/30/19 18:07 clindamycin Allergy GI Upset Verified 05/30/19 18:07 Penicillins Allergy Anaphylatic Verified 05/30/19 18:07 Shock piperacillin Allergy Anaphylatic Verified 05/30/19 18:07 Shock procaine [From Novocain] Allergy Unknown Verified 05/30/19 18:07 Reaction Details Home Medications: Home Medications Otc Allergy Med* 1 tab PO DAILY 05/30/19 [History Confirmed 05/30/19] PMH/Surg Hx/FS Hx/Imm Hx Previously Healthy: Yes Endocrine History: Diabetes, Dyslipidemia Cardiovascular History: Hypertension GI/ History: Gastroesophageal Reflux - Surgical History Surgical History: Yes Surgery Procedure, Year, and Place: C SECTION 2001/2003. RIGHT KNEE MENISCUS X2 . TOOTH REMOVED WITH INFECTION 2014 HAD TO HAVE BONE REMOVED. GALLBLADDER 1997. TUBAL LIGATION 2003. CERVICAL POLYPS REMOVED 08/2017 - Family History Known Family History: Positive: None, Diabetes - Social History Alcohol Use: Rare Substance Use Type: None Substance Use Comment - Amount & Last Used: 18 Smoking Status (MU): Former Smoker Type: Cigarettes Amount Used/How Often: 1 PPD Review of Systems All Other Systems Reviewed And Are Negative: Yes Constitutional: Positive: Negative Skin: Positive: Negative Eyes: Positive: Negative ENT: Positive: Negative Respiratory: Positive: Negative Cardiovascular: Positive: Negative Gastrointestinal: Positive: Negative Genitourinary: Positive: Other - SEE HPI Motor: Positive: Other - SEE HPI Neurovascular: Positive: Negative Musculoskeletal: Positive: Other: - SEE HPI Neurological: Positive: Other - SEE HPI Psychological: Positive: Negative Is Patient Immunocompromised?: No Physical Exam Triage Information Reviewed: Yes Appearance: Well-Appearing, Well-Nourished, Pain Distress - MILD WITH ROM Vital Signs: Initial Vital Signs Temp 97.7 F 05/30/19 18:02 Pulse 113 05/30/19 18:02 Resp 18 05/30/19 18:02 BP 130/81 05/30/19 18:02 Pulse Ox 100 05/30/19 18:02 Vital Signs Reviewed: Yes Eye Exam: Normal Eyes: Positive: Conjunctiva Clear Neck: Positive: Supple Respiratory: Positive: No respiratory distress Musculoskeletal: Positive: Other: - Patient's right knee is in a brace and she was standing for exam. She is primarily weightbearing on the left leg. Right leg has too much pain with weightbearing to test her strength in the right leg. No patellar reflexes checked because the patient was standing. Neurological: Positive: Alert Psychological: Positive: Normal Response To Family, Age Appropriate Behavior Skin Exam: Normal Back Pain Course/Dx - Course Course Of Treatment: Patient will continue with the nonsteroidal anti-inflammatories and a TENS unit. I prescribed Flexeril to use as needed. The plan is to have the patient follow-up with sports medicine for further investigation of her back pain which may include physical therapy or further imaging. By history is difficult to discern when the patient started feeling like her right leg was weaker than her left. By my history is at least as early as August 2018. Due to the pain in the patient being standing during my exam I was unable to fully evaluate neurologic deficit of the leg. Patient also reports that she'll feel like she has to urinate but does not make it to the bathroom in time because she is not able to ambulate with the pain in the right knee. Also she's been having diarrhea for a couple of months getting a colonoscopy therefore it is difficult to determine if she is having problems controlling bowel or bladder. Patient states she has not had any imaging of her back. I let the patient know that if anything got worse with pain weakness numbness difficulty controlling urine or bowel she needs to reevaluated right away. - Differential Dx/Diagnosis Provider Diagnosis: Low back pain Discharge ED - Sign-Out/Discharge Documenting (check all that apply): Patient Departure All imaging exams completed and their final reports reviewed: No Studies - Discharge Plan Condition: Stable Disposition: HOME Prescriptions: Cyclobenzaprine TAB* [Flexeril 10 MG TAB*] 10 mg PO TID PRN #15 tab PRN Reason: Pain - Moderate Patient Education Materials: Acute Low Back Pain (ED) Forms: *Work Release Referrals: Lula Rodriguez NP [Primary Care Provider] - [facility] [Provider Group] Additional Instructions: FOLLOW UP WITH SPORTS MEDICINE. GO TO THE EMERGENCY DEPARTMENT IF YOUR CONDITION WORSENS; PAIN, WEAKNESS, NUMBNESS, DIFFICULTY CONTROLLING BOWEL OR BLADDER OR ANY QUESTIONS OR CONCERNS. - Billing Disposition and Condition Condition: STABLE Disposition: Home
--- NOTE | 2019-06-02 07:13 | UC ---
- Progress Note Progress Note: urine culture final no growth no change Course/Dx - Diagnoses Provider Diagnoses: Low back pain Discharge ED - Sign-Out/Discharge Documenting (check all that apply): Post-Discharge Follow Up All imaging exams completed and their final reports reviewed: No Studies - Discharge Plan Condition: Stable Disposition: HOME Prescriptions: Cyclobenzaprine TAB* [Flexeril 10 MG TAB*] 10 mg PO TID PRN #15 tab PRN Reason: Pain - Moderate Patient Education Materials: Acute Low Back Pain (ED) Forms: *Work Release Referrals: [facility] [Provider Group] Lula Rodriguez NP [Primary Care Provider] - Additional Instructions: FOLLOW UP WITH SPORTS MEDICINE. GO TO THE EMERGENCY DEPARTMENT IF YOUR CONDITION WORSENS; PAIN, WEAKNESS, NUMBNESS, DIFFICULTY CONTROLLING BOWEL OR BLADDER OR ANY QUESTIONS OR CONCERNS. - Billing Disposition and Condition Condition: STABLE Disposition: Home
== END 2019-05-30 19:33 | disposition home or self-care (01) ==
LOC: UCEAST 17:41
DX: M54.5 Low back pain (principal); E11.9 Type 2 diabetes mellitus without complications; R19.7 Diarrhea, unspecified; D64.9 Anemia, unspecified; I10 Essential (primary) hypertension; Z88.0 Allergy status to penicillin; Z88.8 Allergy status to other drugs, medicaments and biological substances; Z88.1 Allergy status to other antibiotic agents; Z91.030 Bee allergy status; Z87.891 Personal history of nicotine dependence
CPT/HCPCS: 81003; 87086; 99212; G0463

== ENCOUNTER 2019-07-05 12:23 | Emergency (ER) | payer BC ==
[2019-07-05] MEDS ORDERED: Ondansetron ODT TAB* 4 MG PO ONE (12:33)
[2019-07-05] MEDS ORDERED: NS 0.9% 1000 ML** 1,000 ML IV ONE ×2 (12:33→14:07)
--- NOTE | 2019-07-05 12:52 | ED ---
Complex/Multi-Sys Presentation - HPI Summary HPI Summary: The pt is a 48 yr old female presenting to [facility] c/o vomiting, diarrhea, and abdominal pain beginning yesterday. She states that yesterday she was feeling better than today and that her abdominal pain feels like cramps. She notes that she is vomiting bile and has yellow stool. She also notes that she has a bleeding ulcer diagnosed on 04/07/2019. She rates her current pain severity due to the abdominal pain a 6/10. No aggravating or alleviating factors noted. She also reports cold sweats and body aches. - History Of Current Complaint Chief Complaint: EDAbdPain Time Seen by Provider: 07/05/19 12:30 Hx Obtained From: Patient Onset/Duration: Sudden Onset, Lasting Days, Still Present Timing: Constant, Days Severity Currently: Moderate Severity Initially: Moderate Aggravating Factor(s): nothing Alleviating Factor(s): nothing Associated Signs And Symptoms: Positive: Nausea, Vomiting, Diarrhea - pos - cold sweats, body aches, Abdominal Pain, Other - Allergies/Home Medications Allergies/Adverse Reactions: Allergies Allergy/AdvReac Type Severity Reaction Status Date / Time amoxicillin Allergy Anaphylatic Verified 07/05/19 12:29 Shock ampicillin Allergy Anaphylatic Verified 07/05/19 12:29 Shock bee venom protein (honey bee) Allergy Anaphylatic Verified 07/05/19 12:29 Shock cephalexin [From Keflex] Allergy Hives Verified 07/05/19 12:29 clindamycin Allergy GI Upset Verified 07/05/19 12:29 nickel Allergy Hives Verified 07/05/19 12:29 Penicillins Allergy Anaphylatic Verified 07/05/19 12:29 Shock piperacillin Allergy Anaphylatic Verified 07/05/19 12:29 Shock procaine [From Novocain] Allergy Unknown Verified 07/05/19 12:29 Reaction Details PMH/Surg Hx/FS Hx/Imm Hx Endocrine/Hematology History: Reports: Hx Diabetes Cardiovascular History: Reports: Hx Hypertension, Other Cardiovascular Problems/ Disorders - states irregular heart beat found with seizures yrs ago Denies: Hx Congestive Heart Failure, Hx Pacemaker/ICD Respiratory History: Denies: Other Respiratory Problems/Disorders GI History: Reports: Hx Crohn's Disease - treated last yr no problems since that time, Hx Gastroesophageal Reflux Disease - ok with daily meds History: Reports: Hx Kidney Infection - in past frequently Denies: Hx Dialysis, Hx Renal Disease Musculoskeletal History: Denies: Hx Scoliosis Sensory History: Reports: Hx Contacts or Glasses - glasses inst given Denies: Hx Hearing Aid Opthamlomology History: Reports: Hx Contacts or Glasses - glasses inst given Neurological History: Reports: Hx Migraine - r/t htn no better on htn meds, Hx Seizures - not on meds stopped seizures after first child in 1990 Denies: Hx Headaches, Other Neuro Impairments/Disorders Psychiatric History: Denies: Hx Panic Disorder - Surgical History Surgery Procedure, Year, and Place: C SECTION . RIGHT KNEE MENISCUS X2 . TOOTH REMOVED WITH INFECTION 2014 HAD TO HAVE BONE REMOVED. GALLBLADDER 1997. TUBAL LIGATION 2003. CERVICAL POLYPS REMOVED 08/2017 Hx Anesthesia Reactions: No Infectious Disease History: No Infectious Disease History: Denies: Traveled Outside the [place] in Last 30 Days - Family History Known Family History: Positive: Diabetes - Social History Alcohol Use: Rare Substance Use Type: Reports: None Substance Use Comment - Amount & Last Used: 18 Smoking Status (MU): Former Smoker Type: Cigarettes Amount Used/How Often: 1 PPD Review of Systems Positive: Other - pos - cold sweats, body aches Positive: Abdominal Pain, Vomiting, Diarrhea, Nausea All Other Systems Reviewed And Are Negative: Yes Physical Exam - Summary Physical Exam Summary: VITAL SIGNS: Reviewed. GENERAL: Patient is a obese female who is lying comfortable in the stretcher. Patient is not in any acute respiratory distress. HEAD AND FACE: No signs of trauma. No ecchymosis, hematomas or skull depressions. No sinus tenderness. EYES: PERRLA, EOMI x 2, No injected conjunctiva, no nystagmus. EARS: Hearing grossly intact. Ear canals and tympanic membranes are within normal limits. MOUTH: Dry oral mucousa. NECK: Supple, trachea is midline, no adenopathy, no JVD, no carotid bruit, no c- spine tenderness, neck with full ROM. CHEST: Symmetric, no tenderness at palpation. LUNGS: Clear to auscultation bilaterally. No wheezing or crackles. CVS: Regular rate and rhythm, S1 and S2 present, no murmurs or gallops appreciated. ABDOMEN: Soft, non-tender. No signs of distention. No rebound, no guarding, and no masses palpated. Bowel sounds are normal. EXTREMITIES: FROM in all major joints, no edema, no cyanosis or clubbing. NEURO: Alert and oriented x 3. No acute neurological deficits. Speech is normal and follows commands. SKIN: Dry and warm. Triage Information Reviewed: Yes Vital Signs On Initial Exam: Initial Vitals Temp Pulse Resp BP Pulse Ox 98.6 F 126 22 122/80 100 07/05/19 12:24 07/05/19 12:24 07/05/19 12:24 07/05/19 12:24 07/05/19 12:24 Vital Signs Reviewed: Yes Procedures - Sedation Patient Received Moderate/Deep Sedation with Procedure: No Diagnostics - Vital Signs Vital Signs Temp Pulse Resp BP Pulse Ox 07/05/19 12:24 98.6 F 126 22 122/80 100 - Laboratory Result Diagrams: 07/05/19 12:56 07/05/19 12:56 Lab Statement: Any lab studies that have been ordered have been reviewed, and results considered in the medical decision making process. - Radiology Abd XR Radiology Interpretation Completed By: Radiologist Summary of Radiographic Findings: IMPRESSION: Air-fluid levels probably within colon. This may represent enteritis. ED Physician has reviewed this report. - EKG 1248 Cardiac Rate: Tachycardia EKG Rhythm: Sinus Tachycardia - 137 bpm Summary of EKG Findings: EKG at 1248 reveals Sinus Tachycardia @ [address] elevations. No significant changes from EKG done on 02/10/2013. Complex Multi-Symp Course/Dx Assessment/Plan: The pt is a 48 yr old female presenting to [facility] c/o vomiting, diarrhea, and abdominal pain beginning yesterday. She states that yesterday she was feeling better than today and that her abdominal pain feels like cramps. She notes that she is vomiting bile and has yellow stool. She also notes that she has a bleeding ulcer diagnosed on 04/07/2019. She rates her current pain severity due to the abdominal pain a 6/10. No aggravating or alleviating factors noted. She also reports cold sweats and body aches. Blood test results without any significant abnormality except for sodium 134, carbon dioxide 20, glucose 222, lactic acid is 2.1, magnesium 1.2, CRP of 67. 1. C. difficile is negative. ED course the patient was given IV fluids, medication for the hypomagnesemia. Patient was given Zofran for nausea and vomiting. The patient was given with these medications the patients symptoms have improved. The patient was tolerating fluids without any nausea and vomiting. Patient had only 1 episode of diarrhea has resolved. She has no abdominal cramping. I discussed all the findings and test results with the patient. Patient was instructed to return to the emergency room immediately if any of the symptoms return worsens. Plan of care was discussed with the patient and understands and agrees. All questions were answered at patient satisfaction. There were no further complaints or concerns. Lung exam before discharge: CTA B/L. Good air exchange. No wheezing or crackles heard. CVS: S1 and S2 present. No murmurs appreciated. Patient is alert and oriented x 3. Patient is hemodynamically stable. Patient will be discharged home with follow up PCP in the next 2-3 days - Diagnoses Provider Diagnoses: Nausea vomiting and diarrhea Discharge ED - Sign-Out/Discharge Documenting (check all that apply): Patient Departure - discharge - Discharge Plan Condition: Stable Disposition: HOME Prescriptions: Ondansetron ODT TAB* [Zofran 4 MG Odt TAB*] 4 mg PO Q8H PRN #10 tab.odt PRN Reason: Vomiting Patient Education Materials: Acute Nausea and Vomiting (ED) Referrals: Lula Rodriguez NP [Primary Care Provider] - 3 Days Additional Instructions: Please follow up with your primary care provider within 3 days. Please return to the ED for any new or worsening symptoms. - Billing Disposition and Condition Condition: STABLE Disposition: Home - Attestation Statements Document Initiated by Tip: Yes Documenting Scribe: Ralph Bond Provider For Whom Tip is Documenting (Include Credential): David Marshall MD Scribe Attestation: Ralph Fritz, scribed for David Marshall MD on 07/08/19 at 0712. Scribe Documentation Reviewed: Yes Provider Attestation: The documentation as recorded by the Ralph caro accurately reflects the service I personally performed and the decisions made by , David Marshall MD Status of Scribgarret Document: Viewed
[2019-07-05 13:17] LABS: ABS Monocytes 0.5 10^3/ul (0-0.8); Eosinophil % 0.4 %; Hematocrit 38 % (35-47); Hemoglobin 12.4 g/dL (12.0-16.0); Lymphocyte % 13.1 %; Mean Corpuscular HGB Conc 33 g/dL (31-36); Mean Corpuscular Hemoglobin 23 pg (27-31); Mean Corpuscular Volume 71 fL (80-97); Nucleated Red Blood Cells % 0.1; Platelet Count 253 10^3/uL (150-450); Red Blood Count 5.31 10^6 /uL (3.70-4.87); Red Cell Distribution Width 19 % (10-15); White Blood Count 7.5 10^3/uL (3.5-10.8)
[2019-07-05 13:23] LABS: ALT 31 U/L (7-52); AST 25 U/L (13-39); Albumin 4.1 g/dL (3.2-5.2); Albumin/Globulin Ratio 1.4 (1-3); Alkaline Phosphatase 77 U/L (34-104); Anion Gap 11 mmol/L (2-11); BUN/Creatinine Ratio 14.3 (8-20); Blood Urea Nitrogen 9 mg/dL (6-24); CO2 Carbon Dioxide 20 mmol/L (22-32); Calcium 8.4 mg/dL (8.6-10.3); Chloride 103 mmol/L (101-111); EGFR African American 123.1 (>60); EGFR Non-African American 101.7 (>60); Globulin 2.9 g/dL (2-4); Glucose 222 mg/dL (70-100); Magnesium 1.2 mg/dL (1.9-2.7); Potassium 3.8 mmol/L (3.5-5.0); Sodium 134 mmol/L (135-145)
[2019-07-05] MEDS ORDERED: Magnesium Sulfate 1 GM IV* 1 GM/100 ML BAG IV ONE (13:25)
[2019-07-05 13:36] LABS: Microcytosis 2+
[2019-07-05 13:37] LABS: Polychromasia 1+
[2019-07-05] MEDS ORDERED: Diphenoxylat/Atrop 2.5-0.025M* 1 TAB PO ONE (14:54)
[2019-07-05] MEDS ORDERED: Acetaminophen TAB* 325 MG PO ONE (16:17)
[2019-07-05 16:32] VITALS: BP 118/71
--- OUTSIDE RECORDS SUMMARY | 2019-07-10 14:29 | XMS REPORT | Summary of Care ---
:1970 Author Organization [facility] Address [address] [place] [address] Care Team Providers Name Role Phone Colt Starks Primary Care Provider Reason for Visit Reason Comments Follow Up f/u labs Encounter Details Date Type Department Care Team Description 2019 Office Visit [place] [facility] Lula Rodriguez, Type 2 diabetes mellitus without complication, without long-term current use of insulin (HCC) ( Primary Dx); Practice GENERAL ENGINEER Essential hypertension, benign; [address] [facility] Mixed hyperlipidemia; [place] [address] [place] [address] Other chronic gastritis without hemorrhage; [phone] Degenerative disc disease, lumbar Allergies Active Allergy Reactions Severity Noted Date Comments Ampicillin Anaphylaxis 08/27/2015 Bee Anaphylaxis High 07/19/2011 Clindamycin Anaphylaxis 07/19/2017 Keflex Anaphylaxis High 07/19/2011 Penicillin G Anaphylaxis, Hives High 07/19/2011 documented as of this encounter (statuses as of 2019) Medications Medication Sig Dispensed Refills Start End Date Status Date loratadine Take 10 mg by 0 Active (CLARITIN,ALAVERT) mouth DAILY. 10 MG Oral Tab atorvastatin Take 1 Tab by 90 Tab 5 Active (LIPITOR) 20 MG Oral mouth DAILY. 9 TabIndications: Mixed hyperlipidemia Diclofenac Sodium Place 1 Dose 1 Bottle 3 Active 1.5 % Transdermal onto skin FOUR 9 Solution TIMES DAILY NEEDED (knee or foot pain). LISINOPRIL-HCTZ Take 1 Tab by 90 Tab 3 Active 20-25 MG Oral mouth DAILY. 9 TabIndications: Essential hypertension Glucose Blood In 1 Strip by In 100 Strip 5 Active Vitro Strip Vitro route 9 DAILY. Freestyle Lite, Dx 250.02, tests daily sitagliptin Take 1 Tab by 60 Tab 5 Active (JANUVIA) 100 MG mouth DAILY. 9 Oral Tab metFORMIN HCL 1000 Take 1 Tab by 120 Tab 5 Active MG Oral mouth TWICE 9 TabIndications: DAILY. Diabetes mellitus without complication (HCC) Omeprazole delayed Take 20 mg by 90 Cap 5 Active rel cap 20 MG Oral mouth TWICE 9 CAPSULE DELAYED DAILY. Taken RELEASE 30-60mins prior to first and last meals. pregabalin (LYRICA) Take 2 Caps by 180 Cap 5 Active 100 MG Oral mouth THREE 9 CapIndications: TIMES DAILY. Degenerative disc Max Daily disease, lumbar Amount: 600 mg. cyclobenzaprine Take 1 Tab by 90 Tab 3 Active (FLEXERIL) 10 MG mouth THREE 9 Oral TabIndications: TIMES DAILY Degenerative disc NEEDED (back disease, lumbar pain). sucralfate Take 1 Tab by 60 Tab 0 Active (CARAFATE) 1 GM Oral mouth TWICE 9 TabIndications: DAILY. Other chronic gastritis without hemorrhage pioglitazone (ACTOS) Take 1 Tab by 30 Tab 5 Active 15 MG Oral mouth DAILY. 9 TabIndications: Type 2 diabetes mellitus without complication, without long-term current use of insulin (HCC) Naproxen Sodium Take by 0 07/10/20 Discontinued (ALEVE) 220 MG Oral mouth. 19 Tab pregabalin (LYRICA) Take 1 Cap by 90 Cap 5 07/10/20 Discontinued 100 MG Oral Cap mouth THREE 9 19 (Reorder) TIMES DAILY. Max Daily Amount: 300 mg. documented as of this encounter (statuses as of 2019) Active Problems Problem Noted Date Old complete tear of anterior cruciate ligament of right knee 04/03/2019 Diabetes mellitus type 2, without complication 03/27/2019 Old complete ACL tear 12/12/2018 Primary osteoarthritis of right knee 10/06/2018 Old complete ACL tear, right 10/06/2018 Myoma 07/17/2018 Overview: Added automatically from request for surgery [id number] Achilles tendinitis of both lower extremities 09/06/2016 Bilateral ankle pain 01/08/2016 Osteonecrosis 08/19/2015 Overview: Right posterior mandible. Acute pain of right knee 03/11/2015 odontogenic abscess(right lower jaw) 08/06/2014 Essential hypertension, benign 08/19/2011 Mixed hyperlipidemia 08/19/2011 Tobacco abuse 07/19/2011 BMI 40.0-44.9, adult 07/19/2011 documented as of this encounter (statuses as of 2019) Resolved Problems Problem Noted Date Resolved Date Pelvic pain in female 08/19/2011 01/08/2016 documented as of this encounter (statuses as of 2019) Immunizations Name Administration Dates Next Due Influenza (IM) Preservative Free 04/26/2019, 06/16/2015 Influenza Vaccine Split 08/07/2014 PNEUMOCOCCAL POLYSACCHARIDE [...] Sign Reading Time Taken Comments Blood Pressure 122/70 2019 7:24 AM EST Pulse 122 2019 7:24 AM EST Temperature - - Respiratory Rate - - Oxygen Saturation 97% 2019 7:24 AM EST Inhaled Oxygen Concentration - - Weight 114.3 kg (252 lb) 2019 7:24 AM EST Height 177.8 cm (5' 10") 2019 7:24 AM EST Body Mass Index 36.16 2019 7:24 AM EST documented in this encounter Patient Instructions Patient InstructionsLula Rodriguez FNP - 2019 7:20 AM ESTIncrease lyrica by 100 mg every 7-10 to max of 2 tabs three times a day Schedule fasting lab work early October, then office visit Start actos daily for diabetes Continue with service observer, pain clinic . Prescriptions sent to your pharmacy. documented in this encounter Progress Notes Lula Rodriguez FNP - 2019 7:20 AM EST PATIENT: Vanessa Chu : 1970 DATE OF SERVICE: 2019 Chief Complaint Patient presents with Follow Up f/u labs SUBJECTIVE: Vanessa Chu is a 49-y.o. female who is here to follow up on labs for diabetes. Also follow up on hypertention and dyslipidemia She has been seeing GI for history of diarrhea and ulcer. Now on prilosec and carafate and will be having EGD and colonoscopy later this month. She has also seen neurosurgeon for her chronic back pain and had MRI showing multilevel DDD. She is schedule to see Pain management in August. Neurosurgeon suggested continuing flexeril and lyrica until then along with tylenol. He suggested increase in lyrica. The patient is taking hypertensive medications compliantly without side effects. Denies chest pain,dyspnea, edema, or TIA's. No dizziness. She has been taking her statin cholesterol medication regularly without side effects such as myalgias or upper abdominal pain, nausea or jaundice. Her home fingersticks are in 200's. She is taking metformin and januvia. Patient Active Problem List Diagnosis Date Noted Old complete tear of anterior cruciate ligament of right knee 04/03/2019 Diabetes mellitus type 2, without complication 03/27/2019 Old complete ACL tear 12/12/2018 Primary osteoarthritis of right knee 10/06/2018 Old complete ACL tear, right 10/06/2018 Myoma 07/17/2018 Added automatically from request for surgery [id number] Achilles tendinitis of both lower extremities 09/06/2016 Bilateral ankle pain 01/08/2016 Osteonecrosis (HCC) 08/19/2015 Right posterior mandible. Acute pain of right knee 03/11/2015 odontogenic abscess(right lower jaw) 08/06/2014 Essential hypertension, benign 08/19/2011 Mixed hyperlipidemia 08/19/2011 Tobacco abuse 07/19/2011 BMI 40.0-44.9, adult (HCC) 07/19/2011 Current Outpatient Medications Medication Sig atorvastatin (LIPITOR) 20 MG Oral Tab Take 1 Tab by mouth DAILY. cyclobenzaprine (FLEXERIL) 10 MG Oral Tab Take 1 Tab by mouth THREE TIMES DAILY NEEDED (back pain). Diclofenac Sodium 1.5 % Transdermal Solution Place [...] Take 1 Tab by mouth TWICE DAILY. Omeprazole delayed rel cap 20 MG Oral CAPSULE DELAYED RELEASE Take 20 mg by mouth TWICE DAILY. Taken 30-60mins prior to first and last meals. pioglitazone (ACTOS) 15 MG Oral Tab Take 1 Tab by mouth DAILY. pregabalin (LYRICA) 100 MG Oral Cap Take 2 Caps by mouth THREE TIMES DAILY. Max Daily Amount:600 mg. sitagliptin (JANUVIA) 100 MG Oral Tab Take 1 Tab by mouth DAILY. sucralfate (CARAFATE) 1 GM Oral Tab Take 1 Tab by mouth TWICE DAILY. No current facility-administered medications for this visit. OBJECTIVE: BP 122/70 (BP Location: Left arm, Patient Position: Sitting) | Pulse (!) 122 | Ht 5' 10" (1.778 m) | Wt 252 lb (114.3 kg) | SpO2 97% | BMI 36.16 kg/m She is alert and in no distress.Chest is clear, no wheezing or rales. Normal symmetric air entry throughout both lung ellison. Heart rate with a long standing mild tachy. EKG done in ER recently showingsinus tach at 126. Lab Results Component Value Date CHOL 130 06/30/2019 TRIG 294 (H) 06/30/2019 HDL 34 (L) 06/30/2019 LDL 37 06/30/2019 LDLHDLRATIO 1.1 06/30/2019 CHOLHDLRATIO 3.8 06/30/2019 Lab Results Component Value Date GLYCO 10.3 (H) 06/30/2019 GLYCO 8.5 (H) 03/27/2019 GLYCO 6.9 (H) 10/25/2016 Lab Results Component Value Date NA 138 06/30/2019 K 4.0 06/30/2019 CL 105 06/30/2019 CO2 24 06/30/2019 GLUCOSE 230 (H) 06/30/2019 BUN 9 06/30/2019 CREATININE 0.5 (L) 06/30/2019 CALCIUM 8.7 06/30/2019 TP 6.7 06/30/2019 ALBUMIN 3.8 06/30/2019 AST 52 (H) 06/30/2019 ALT 47 06/30/2019 ALK 86 06/30/2019 TBILI 0.3 06/30/2019 EGFR >60 06/30/2019 ER visit 07/05/19 CBC with wbc 7.5, H&H 12.4/38. No Cdiff. Positive lactoferritin. Negative stool culture. ASSESSMENT: ICD-9-CM ICD-10-CM 1. Type 2 diabetes mellitus without complication, without long-term current use of insulin (HCC), poor control 250.00 E11.9 pioglitazone (ACTOS) 15 MG Oral Tab GLYCOHEMOGLOBIN A1C 2. Essential hypertension, benign 401.1 I10 COMPREHENSIVE METABOLIC PANEL 3. Mixed hyperlipidemia 272.2 E78.2 LIPID PROFILE 4. Other chronic gastritis without hemorrhage 535.10 K29.50 sucralfate (CARAFATE ) 1 GM Oral Tab 5. Degenerative disc disease, lumbar 722.52 M51.36 pregabalin (LYRICA) 100 MG Oral Cap cyclobenzaprine (FLEXERIL) 10 MG Oral Tab Patient Instructions Increase lyrica by 100 mg every 7-10 to max of 2 tabs three times a day Schedule fasting lab work early October, then office visit Start actos daily for diabetes Continue with service observer, pain clinic . Prescriptions sent to your pharmacy. Author: STACY Love 2019 08:18 documented in this encounter Plan of Treatment Date Type Specialty Care Team Description 08/03/2019 Hospital Encounter [facility] Colt Blankenship, Short Procedure DO [address] [id number] 08/03/2019 GI Procedure Gastroenterology Colt Blankenship, DO [address] [id number] 08/03/2019 Surgery [facility] Colt Blankenship, COLONOSCOPY DO [address] [address] [phone] 10/08/2019 Lab Internal Medicine 10/16/2019 Office Visit Family Practice Lula Rodriguez FNP [address] [place] [address] [phone] Name Type Priority Associated Diagnoses Order Schedule GLYCOHEMOGLOBIN A1C Lab Routine Type 2 diabetes mellitus Expected: without complication, 2019 without long-term current (Approximate), use of insulin (HCC) Expires: 01/06/2020 COMPREHENSIVE METABOLIC Lab Routine Essential hypertension, Expected: PANEL benign 2019 (Approximate), Expires: 01/06/2020 LIPID PROFILE Lab Routine Mixed hyperlipidemia Expected: 2019 (Approximate), Expires: 01/06/2020 Health Maintenance Due Date Last Done Comments Diabetic Eye Exam 1970 FOOT EXAM 1990 MAMMOGRAM (SCREENING) 2012 PAP SMEAR 09/25/2018 09/25/2015, 09/25/2015, 07/19/2011 HEMOGLOBIN A1C 09/30/2019 06/30/2019, 03/27/2019, 10/25/2016, Additional history exists DEPRESSION SCREENING 03/27/2020 03/27/2019 LIPID DISORDER SCREENING 06/30/2020 06/30/2019, 03/27/2019, 03/27/2019, Additional history exists Colonoscopy 06/07/2024 06/07/2019, 06/07/2019, 01/18/2013 PNEUMOCOCCAL 0-64 YRS Completed 08/07/2014 INFLUENZA VACCINE Completed 04/26/2019, 06/16/2015, 08/07/2014 HPV IMMUNIZATION SERIES Aged Out No longer eligible based on patient's age to complete this topic MENINGOCOCCAL VACCINE IMM Aged Out No longer eligible based on patient's age to complete this topic documented as of this encounter Goals Goal Patient Goal Associated Recent Patient-Stated? Author Type Problems Progress Blood Pressure Blood Pressure 122/70 No Michael, < 140/90 (2019 STACY Cotton 7:24 AM EST) Note: This is an individualized treatment (blood pressure) goal for Vanessa Chu: Displayed above (on the left) is your goal for blood pressure control. Your most recent blood pressure is also shown above, on the right. You should try to achieve blood pressures that are lower than your goal listed above (on the left). Glycohemoglobin A1c < 7.0 Diabetes 10.3 (06/30/2019 9:00 No Lula Rodriguez FNP AM EST) Note: This is an individualized treatment (diabetes control, HgbA1C) goal for Vanessa Chu: Displayed above is your progress towards your HgbA1C goal. Your goal is shown above (on the left); your most recent HgbA1C is shown on the right. Note that lower numbers are better. Weight loss vs. 18 mo Lifestyle 16 (2019 7:24 AM No Lula Rodriguez FNP max (lbs) >= 10 EST) Note: This is an individualized lifestyle goal [...] filedocumented in this encounter Visit Diagnoses Diagnosis Type 2 diabetes mellitus without complication, without long-term current use of insulin (HCC) - Primary Essential hypertension, benign Mixed hyperlipidemia Other chronic gastritis without hemorrhage Degenerative disc disease, lumbar Degeneration of lumbar or lumbosacral intervertebral disc documented in this encounter Insurance Payer Benefit Plan / Subscriber ID Effective Dates Phone Address Type Group MAYURI LEONBS xxxxxxxxxxxx 2014-Present [employer] Guarant[employer] Name Account Type Relation to Date of Phone Billing Patient Address Vanessa Chu Personal/Family 1970 [address] [place]) [place] [address] documented as of this encounter
--- OUTSIDE RECORDS SUMMARY | 2019-07-10 14:29 | XMS REPORT | Summary of Care ---
:1970 Author Organization [facility] Address [address] [address] Care Team Providers Name Role Phone [place] Dion[place] Primary Care Provider Reason for Visit Auth/Cert Status Reason Specialty Diagnoses / Procedures Referred By Contact Referred To Contact Encounter Details Date Type Department Care Team Description 06/07/2019 Hospital Encounter [facility] Dorinda Blankenship Short Procedure [address] [place] [address] [address] [place] [phone] [address] [place] [address] [phone] Allergies Active Allergy Reactions Severity Noted Date Comments Ampicillin Anaphylaxis 08/27/2015 Bee Anaphylaxis High 07/19/2011 Clindamycin Anaphylaxis 07/19/2017 Keflex Anaphylaxis High 07/19/2011 Penicillin G Anaphylaxis, Hives High 07/19/2011 documented as of this encounter (statuses as of 06/08/2019) Medications Medication Sig Dispensed Refills Start Date [...] MG mouth DAILY. Oral TabIndications: Mixed hyperlipidemia Diclofenac Sodium Place 1 [...] Take 20 mg by 90 Cap 5 06/07/2019 Active rel cap 20 MG Oral mouth TWICE CAPSULE DELAYED DAILY. Taken RELEASE 30-60mins prior to first and last meals. Omeprazole delayed Take 20 mg by 90 Cap 5 03/27/2019 06/07/20 Discontinued rel cap 20 MG Oral mouth DAILY. 19 (Reorder) CAPSULE DELAYED RELEASE documented as of this encounter (statuses as of 06/08/2019) Active Problems Problem Noted Date Old complete tear of anterior cruciate ligament of right knee 04/03/2019 Diabetes mellitus type 2, without complication 03/27/2019 Old complete ACL tear 12/12/2018 Primary osteoarthritis of right knee 10/06/2018 Old complete ACL tear, right 10/06/2018 Myoma 07/17/2018 Overview: Added automatically from request for surgery [id number] Achilles tendinitis of both lower extremities 09/06/2016 Bilateral ankle pain 01/08/2016 Osteonecrosis 08/19/2015 Overview: Right posterior mandible. Acute pain of right knee 03/11/2015 odontogenic abscess(right lower jaw) 08/06/2014 Essential hypertension, benign 08/19/2011 Mixed hyperlipidemia 08/19/2011 Tobacco abuse 07/19/2011 BMI 40.0-44.9, adult 07/19/2011 documented as of this encounter (statuses as of 06/08/2019) Resolved Problems Problem Noted Date Resolved Date Pelvic pain in female 08/19/2011 01/08/2016 documented as of this encounter (statuses as of 06/08/2019) Immunizations Name Administration Dates Next Due Influenza [...] Sign Reading Time Taken Comments Blood Pressure 97/58 06/07/2019 11:35 AM EDT Pulse 82 06/07/2019 11:35 AM EDT Temperature 36.8 06/07/2019 11:35 AM EDT C (98.2 F) Respiratory Rate 27 06/07/2019 11:35 AM EDT Oxygen Saturation 100% 06/07/2019 11:35 AM EDT Inhaled Oxygen Concentration - - Weight 114.8 kg (253 lb) 06/07/2019 10:06 AM EDT Height 177.8 cm (5' 10") 06/07/2019 10:06 AM EDT Body Mass Index 36.3 06/07/2019 10:06 AM EDT documented in this encounter Plan of Treatment Date Type Specialty Care Team Description 06/30/2019 Lab Internal Medicine 2019 Office Visit Family Practice Lula Rodriguez, [employer] [address] [place] [address] [phone] 08/03/2019 Hospital Encounter [facility] Dorinda Blankenship Short Procedure J, DO [address] [address] [phone] 08/03/2019 GI Procedure Gastroenterology Dorinda Blankenship J, DO [address] [address] [phone] 08/03/2019 Surgery [facility] Dorinda Blankenship ENDOSCOPY UPPER GI J, DO [address] [address] Name Type Priority Associated Diagnoses Date/Time TISSUE EXAM Lab Routine Other iron deficiency anemia 06/07/2019 10:33 AM EDT Name Type Priority Associated Order Schedule Diagnoses UGI/EGD IN GI SUITE Diagnostic/Surgical Routine TOMORROW - GENERAL Procedures USE for 1 Occurrences starting 06/07/2019 until 06/07/2019 COLONOSCOPY Diagnostic/Surgical Routine TOMORROW - GENERAL Procedures USE for 1 Occurrences starting 06/07/2019 until 06/07/2019 UGI/EGD IN GI SUITE Diagnostic/Surgical Routine TOMORROW - GENERAL Procedures USE for 1 Occurrences starting 06/07/2019 until 06/07/2019 TISSUE EXAM Lab Routine Other iron *ONE TIME for 1 deficiency anemia Occurrences starting 06/07/2019, 1 completed Health Maintenance Due Date Last Done Comments Diabetic Eye Exam 1970 FOOT EXAM 1990 MAMMOGRAM (SCREENING) 2012 PAP SMEAR 09/25/2018 09/25/2015, 09/25/2015, 07/19/2011 HEMOGLOBIN A1C 06/27/2019 03/27/2019, 10/25/2016, 08/20/2015, Additional history exists DEPRESSION SCREENING 03/27/2020 03/27/2019 LIPID DISORDER SCREENING 03/27/2020 03/27/2019, 03/27/2019, 10/25/2016, Additional history exists COLONOSCOPY SCREENING 06/07/2024 06/07/2019, 01/18/2013 PNEUMOCOCCAL 0-64 YRS Completed 08/07/2014 [...] Type Problems Progress Blood Pressure Blood Pressure 97/58 Suzanne Rodriguez, < 140/90 (06/07/2019 STACY Cotton 11:35 AM EDT) Note: This is an individualized [...] better. Weight loss vs. 18 mo Lifestyle 15 (06/07/2019 10:06 AM No Lula Rodriguez FNP max (lbs) [...] ongoing basis. documented as of this encounter Procedures Procedure Name Priority Date/Time Associated Comments Diagnosis PROCEDURE SAFETY 06/07/2019 12:00 CHECKLIST PM EDT SIGN PERMIT 06/07/2019 12:00 PM EDT HC GLUCOSE, BY Routine 06/07/2019 11:10 Results for this MONITOR AM EDT procedure are in the results section. UPPER GI ENDOSCOPY Routine 06/07/2019 10:17 Results for this REPORT AM EDT procedure are in the results section. COLONOSCOPY REPORT Routine 06/07/2019 10:16 Results for this AM EDT procedure are in the results section. ENDOSCOPY UPPER GI 06/07/2019 10:14 AM EDT COLONOSCOPY 06/07/2019 10:14 AM EDT HC GLUCOSE, BY Routine 06/07/2019 10:06 Results for this MONITOR AM EDT procedure are in the results section. URINE Routine 06/07/2019 9:51 Results for this (POCT) AM EDT procedure are in the results section. documented in this encounter Results GLUCOSE (POCT) (06/07/2019 11:10 AM EDT) Glucose POCT 247 (H) 70 - 99 mg/dl POINT OF CARE Result Comment: TESTING Performed at: [facility] POCT Avelino Cullen MD, Laboratory [employer] [address] [address] Specimen Performing Organization Address City/State/[facility] Phone Number POINT OF CARE TESTING UPPER GI ENDOSCOPY REPORT (06/07/2019 10:17 AM EDT) Upper GI endoscopy [facility] __ Patient Name: Vanessa Chu Procedure Date: 06/07/2019 10:17 AM Date of : 1970 Admit Type: Outpatient Age: 48 Room: 17 Gender: Female Note Status: Finalized Attending MD: DORINDA BLANKENSHIP DO Instrument Name: [id number] __ Procedure: Upper GI endoscopy Indications: Iron deficiency anemia Providers: DORINDA BLANKENSHIP DO, Mila Aguilar RN (Nurse), Kita Levi, Chart Clerk (Chart Clerk) Patient Profile: This is a 48 year old female. Refer to note in patient chart for documentation of history and physical. Referring MD: DORINDA CEVALLOS MD (Referring MD), STACY BRADFORD (Referring MD) Medicines: Monitored Anesthesia Care Complications: No immediate complications. __ Procedure: The patient's current medications and allergies were reviewed and recorded in the nurses notes. The patient was made aware of the risk of the procedure which can include: bleeding, infection, perforation, an adverse reaction to sedation, and a risk of missed lesions, among others. The patient appeared to understand. An opportunity for questions was provided, and an informed consent form was signed. The scope was passed under direct vision. Throughout the procedure, the patient's blood pressure, pulse EKG, and oxygen saturations were monitored continuously. The Endoscope was introduced through the mouth, and advanced to the second part of duodenum. The Z-line was located at: 36cm The upper GI endoscopy was accomplished with ease. The patient tolerated the procedure well. Findings: The duodenal bulb and second portion of the duodenum were normal. Diffuse mildly erythematous mucosa without bleeding was found in the gastric body and in the gastric antrum. Biopsies were taken with a cold forceps for Helicobacter pylori testing. Estimated blood loss was minimal. A 3 cm hiatal hernia with a single Gentry erosion was found. The proximal extent of the gastric folds (end of tubular esophagus) was 37 cm from the incisors. The hiatal narrowing was 40 cm from the incisors. The Z-line was irregular and was found 36 cm from the incisors. The exam of the esophagus was otherwise normal. Impression: - Normal duodenal bulb and second portion of the duodenum. - Erythematous mucosa in the gastric body and antrum. Biopsied. - 3 cm hiatal hernia with a single Gentry erosion. - Z-line irregular, 36 cm from the incisors. Recommendation: - Discharge patient to home (ambulatory). - Resume previous diet. - Follow an antireflux regimen indefinitely. - Use Prilosec (omeprazole) 20 mg PO BID for 8 weeks. - Use sucralfate tablets 1 gram PO BID for 4 weeks. - Await pathology results. - Repeat upper endoscopy recommended in 8 weeks to reassess camerons erosion after treatment. - Return to referring physician as previously scheduled. Procedure Code(s): --- Professional --- 91660, Esophagogastroduodenoscopy, flexible, transoral; with biopsy, single or multiple Diagnosis Code(s): --- Professional --- D50.9, Iron deficiency anemia, unspecified CPT copyright 2017 [employer]. All rights reserved. The codes documented in this report are preliminary and upon apns review may be revised to meet current compliance requirements. DORINDA BLANKENSHIP DO 06/07/2019 10:39:44 AM Number of Addenda: 0 Note Initiated On: 06/07/2019 10:17 AM CC Letter to: DORINDA CEVALLOS MD (CC) Estimated Blood Loss: Estimated blood loss: none. Estimated blood loss was minimal. Specimen Performing Organization Address City/State/Zipcode Phone Number [facility] COLONOSCOPY REPORT (06/07/2019 10:16 AM EDT) GI Procedure [facility] __ Patient Name: Vanessa Chu Procedure Date: 06/07/2019 10:16 AM Date of : 1970 Admit Type: Outpatient Age: 48 Room: 17 Gender: Female Note Status: Finalized Attending MD: DORINDA BLANKENSHIP DO Instrument Name: [id number] __ Procedure: Colonoscopy Indications: Iron deficiency anemia Providers: DORINDA BLANKENSHIP DO, Mila Aguilar, RN (Nurse), Kita Levi, Chart Clerk (Chart Clerk) Patient Profile: This is a 48 year old female. Refer to note in patient chart for documentation of history and physical. Referring MD: DORINDA CEVALLOS MD (Referring MD) Medicines: Monitored Anesthesia Care Complications: No immediate complications. __ Procedure: The patient's current medications and allergies were reviewed and recorded in the nurses notes. The patient was made aware of the risk of the procedure which can include: bleeding, infection, perforation, an adverse reaction to sedation, and a risk of missed lesions, among others. The patient appeared to understand. An opportunity for questions was provided, and an informed consent form was signed. The scope was passed under direct vision. Throughout the procedure, the patient's blood pressure, pulse EKG, and oxygen saturations were monitored continuously. The Colonoscope was introduced through the anus and advanced to the cecum, identified by appendiceal orifice and ileocecal valve. The colonoscopy was performed with difficulty due to poor bowel prep. The patient tolerated the procedure well. The quality of the bowel preparation was poor. Findings: A moderate amount of solid stool was found in the sigmoid colon, in the descending colon, in the transverse colon, in the ascending colon and in the cecum, interfering with visualization. A 5 mm polyp was found in the transverse colon. The polyp was sessile. The polyp was removed with a cold snare. Resection and retrieval were complete. Estimated blood loss was minimal. A few small-mouthed diverticula were found in the sigmoid colon. Non-bleeding internal hemorrhoids were found during retroflexion. The hemorrhoids were small and Grade I (internal hemorrhoids that do not prolapse). Impression: - Preparation of the colon was poor. - Stool in the sigmoid colon, in the descending colon, in the transverse colon, in the ascending colon and in the cecum. - One 5 mm polyp in the transverse colon, removed with a cold snare. Resected and retrieved. - Diverticulosis in the sigmoid colon. - Non-bleeding internal hemorrhoids. Recommendation: - Discharge patient to home (ambulatory). - Resume previous diet. - Continue present medications. - No aspirin, ibuprofen, naproxen, or other non-steroidal anti-inflammatory drugs for 3 days after polyp removal. - Await pathology results. - Repeat colonoscopy in 8 weeks (along with EGD for surveillance) because the bowel preparation was poor. Recommend Colyte preparation and 2 days of clear liquids prior to procedure. - No large masses identified on this exam however limited evaluation due to preparation. - Return to referring physician as previously scheduled. Procedure Code(s): --- Professional --- 62826, Colonoscopy, flexible; with removal of tumor(s), polyp(s), or other lesion(s) by snare technique Diagnosis Code(s): --- Professional --- D50.9, Iron deficiency anemia, unspecified CPT copyright 2017 [employer]. All rights reserved. The codes documented in this report are preliminary and upon apns review may be revised to meet current compliance requirements. DORINDA BLANKENSHIP DO 06/07/2019 10:52:48 AM Number of Addenda: 0 Note Initiated On: 06/07/2019 10:16 AM CC Letter to: DORINDA CEVALLOS MD (CC) Estimated Blood Loss: Estimated blood loss was minimal. Specimen Performing Organization Address City/[facility] Phone Number [facility] GLUCOSE (POCT) (06/07/2019 10:06 AM EDT) Glucose POCT 268 (H) 70 - 99 mg/dl POINT OF CARE Result Comment: TESTING Performed at: [facility] POCT Avelino Cullen MD, Laboratory [employer] [address] [address] Specimen Performing Organization Address [facility] Phone Number POINT OF CARE TESTING URINE (POCT) (06/07/2019 9:51 AM EDT) Urine Test negative POINT OF CARE (POCT) TESTING Qualitative Urine acceptable POINT OF CARE HCG Internal Control Comment: TESTING (POCT) Performed at: [facility] POCT Avelino Cullen MD, Laboratory [employer] [address] [address] Specimen Performing Organization Address City/State/Zipcode Phone Number POINT OF CARE TESTING documented in this encounter Visit Diagnoses Diagnosis Other iron deficiency anemia documented in this encounter Administered Medications Medication Order MAR Action Action Date Dose Rate Site lactated ringers IV Intravenous, at 100 mL/hr, PRU CONTINUOUS, Starting Tue06/07/19 at 1100, Until Tue06/07/19 at 1426, 4 Recovery, PRU, normal saline IV New Bag 06/07/2019 10:23 AM EDT Intravenous, at 25 mL/hr, CONTINUOUS, Starting Tue06/08/19 at 0600, Until Tue06/07/19 at 1426 ondansetron (ZOFRAN) injection 4 mg 4 mg, Intravenous Push, PRU X1 PRN, 1 dose, Starting Tue06/07/19 at 1054, Until Tue06/07/19 at 1426, Nausea/Vomiting - IV - 1st line - If immediate effect required or patient cannot tolerate PO, 4 Recovery REGULAR insulin Given 06/07/2019 10:18 AM EDT 4 Units Abdominal Tissue (SHORT-Acting) injection 4 Units 4 Units, Subcutaneous, X1, 1 dose, First dose on Tue06/07/19 at 1110 REGULAR insulin Given 06/07/2019 11:24 AM EDT 4 Units Arm - Upper Left (SHORT-Acting) injection 4 Units 4 Units, Subcutaneous, X1, 1 dose, First dose on Tue06/07/19 at 1220 documented in this encounter Insurance Payer Benefit Plan / Subscriber ID Effective Dates Phone Address Type Group [employer] xxxxxxxxxxxx 2014-Present [employer] Guarant[employer] Name Account Type Relation to Date of Phone Billing Patient Address Vanessa Chu Personal/Family 1970 [id number] [place] [address] documented as of this encounter
== END 2019-07-05 16:26 | disposition home or self-care (01) ==
LOC: ED 12:23
DX: R11.2 Nausea with vomiting, unspecified (principal); R19.7 Diarrhea, unspecified; E11.9 Type 2 diabetes mellitus without complications; I10 Essential (primary) hypertension; K21.9 Gastro-esophageal reflux disease without esophagitis; Z98.51 Tubal ligation status; Z87.891 Personal history of nicotine dependence; Z79.899 Other long term (current) drug therapy; Z88.4 Allergy status to anesthetic agent; Z88.1 Allergy status to other antibiotic agents; Z88.0 Allergy status to penicillin
CPT/HCPCS: 36415; 74019; 80053; 83605; 83630; 83690; 83735; 85025; 86140; 87045; 87046; 87077; 87493; 87899; 93005; 96361; 96365; 99284; A9270-GY; J3475

== ENCOUNTER 2022-10-19 07:30 | Observation (INO) ==
[~2022-10-19 07:30] MED LIST: Buffered Lidocaine 1% SYRIN 1 ml INTRADERM ONE; Lactated Ringers 1000 ml BAG 1,000 ML IV SCH
[2022-10-19] MEDS ORDERED: Clindamycin 900 MG/50 **NS BAG 900 MG/50 ML BAG IV ONE (09:00)
[2022-10-19] MEDS ORDERED: Propofol 0 MG/0 ML BTL ONE (10:21)
[2022-10-19] MEDS ORDERED: ROPIVACAINE 5 MG/ML 30 ML BTL (0.5%) ONE ×2 (10:31→10:41)
[2022-10-19] MEDS ORDERED: Midazolam 2 mg/2 ml VIAL 1 mg/ml 2 ml VIAL (2 mg) ONE (10:41)
[2022-10-19] MEDS ORDERED: fentaNYL 100 mcg/2 ml 50 MCG/ML VIAL ONE ×3 (10:41→15:28)
[2022-10-19] MEDS ORDERED: Lactulose 30 ml UDC PO PRN (11:07)
[2022-10-19] MEDS ORDERED: Morphine 2 MG/ML SYRINGE IV PRN (11:07)
[2022-10-19] MEDS ORDERED: Ondansetron 4 mg VIAL 2 MG/ML 2 ml VIAL IV PRN ×2 (11:07→11:10)
[2022-10-19] MEDS ORDERED: Magnesium Hydroxide LIQ 30 ML UDC PO PRN (11:07)
[2022-10-19] MEDS ORDERED: Ondansetron ODT 4 mg TAB 4 MG TAB PO PRN (11:07)
[2022-10-19] MEDS ORDERED: Naloxone 0.4 mg VIAL 0.4 mg/ml 1 ml VIAL IV PRN (11:10)
[2022-10-19] MEDS ORDERED: Lidocaine 2% PF 5 ML VIAL ONE (11:30)
[2022-10-19] MEDS ORDERED: Propofol 10 MG/ML 20 ML BTL ONE (11:30)
[2022-10-19] MEDS ORDERED: fentaNYL 250 mcg/5 ml 50 MCG/ML 5 ml VIAL (250 MCG) ONE (11:30)
[2022-10-19] MEDS ORDERED: Dexamethasone IV 4 MG/ML VIAL 1 ml VIAL ONE (11:56)
[2022-10-19] MEDS ORDERED: Ondansetron 4 mg VIAL 2 MG/ML 2 ml VIAL ONE (11:56)
[2022-10-19] MEDS ORDERED: Lactated Ringers 1000 ml BAG 1,000 ML IV SCH (12:00)
[2022-10-19] MEDS ORDERED: Acetaminophen IV 1 GM/100ML 1,000 MG/100 ML BAG IV ONE (12:01)
[2022-10-19] MEDS ORDERED: HYDROmorphone 0.5 MG/0.5 ML SYRINGE ONE (12:51)
[2022-10-19] MEDS: fentaNYL 100 mcg/2 ml 50 MCG/ML VIAL IV PRN ×6 (14:41→16:10)
[2022-10-19] MEDS ORDERED: fentaNYL 100 mcg/2 ml 50 MCG/ML VIAL IV PRN (16:11)
[2022-10-19] MEDS ORDERED: Dextrose 50% Syringe 50 ml 25 GM/50 ML SYRINGE IV PUSH PRN (18:22)
[2022-10-19] MEDS: Magnesium Hydroxide LIQ 30 ML UDC PO SCH (20:21)
[2022-10-19] MEDS: Clindamycin 600 MG/D5W BAG 600 MG/50 ML BAG IV SCH (20:30)
[2022-10-19] MEDS ORDERED: Insulin GLARGINE 100 un/ml 10 ml VIAL SUBCUT SCH (21:00)
[2022-10-20] MEDS: Clindamycin 600 MG/D5W BAG 600 MG/50 ML BAG IV SCH ×2 (03:58→12:03)
[2022-10-20 06:32] LABS: Hematocrit 36 % (35-47); Hemoglobin 12.3 g/dL (12.0-16.0); Mean Platelet Volume 9.8 fL (7.4-10.4); Platelet Count 184 10^3/uL (150-450)
[2022-10-20 07:03] LABS: Calcium 9.2 mg/dL (8.6-10.3); Creatinine, Serum 0.81 mg/dL (0.51-0.95); Potassium 4.3 mmol/L (3.5-5.0); eGFR CKD-EPI 88.4 (>60)
[2022-10-20] MEDS: Magnesium Hydroxide LIQ 30 ML UDC PO SCH (08:20)
[2022-10-20] MEDS ORDERED: Vitamin THERAPEUTIC TAB PO SCH (09:00)
[2022-10-20] MEDS ORDERED: Lisinopril/HCTZ 20/25 TAB (NF) PO SCH (09:00)
[2022-10-20 10:53] VITALS: BP 107/63
== END 2022-10-20 14:20 | disposition home or self-care (01) ==
LOC: INTOOBSV 08:03 → AA 08:03 → SSU 17:10
PROVIDERS: ADMIT Orthopaedic Surgery Adult Reconstructive Orthopaedic Surgery; ATTEND Orthopaedic Surgery Adult Reconstructive Orthopaedic Surgery